=== PATIENT | female | born 1980 | race Two or more races ===

== ENCOUNTER 2018-04-10 22:59 | Inpatient (IN) | payer MEDICAID ==
[~2018-04-10] VITALS: Ht 167.6 cm; Wt 106.5 kg
[2018-04-11 00:10] LABS: Basophils # (auto) 0 uL; Basophils % (auto) 0.2 % (0.0-2.0); Eosinophils # (auto) 0.2 uL; Eosinophils % (auto) 1.3 % (0.0-7.0); Hematocrit 40.1 % (36.0-46.0); Hemoglobin 13.3 g/dL (12.2-16.2); Lymphocytes # (auto) 2.3 uL; Lymphocytes % (auto) 19.5 % (10.0-50.0); Mean Corpuscular Hemoglobin 28.8 pg (28.0-32.0); Mean Corpuscular Hgb Conc. 33.1 g/dL (32.0-36.0); Mean Corpuscular Volume 86.8 fL (80.0-100.0); Monocytes # (auto) 0.9 uL; Monocytes % (auto) 7.5 % (0.0-12.0); Neutrophils # (auto) 8.4 uL; Neutrophils % (auto) 71.5 % (37.0-80.0); Platelet Count (auto) 259 10^3/uL (140-450); Red Blood Cells 4.62 10^6/uL (4.0-5.20); Red Cell Distribution Width 14.5 % (11.8-14.3); White Blood Cell 11.8 10^3/uL (4.4-10.8)
[2018-04-11 00:17] LABS: Urine Amorphous Crystal FEW /hpf (None Seen); Urine Bacteria FEW /hpf (None Seen); Urine Blood 2+ /uL (Negative); Urine Specific Gravity 1.004 (1.001-1.035); Urine WBC 1 /hpf (0 - 5)
[2018-04-11 00:40] LABS: Albumin 3.5 g/dL (3.4-5.0); Calcium 8.1 mg/dL (8.5-10.1); Potassium 3.5 mmol/L (3.5-5.1)
[2018-04-11 00:42] LABS: BUN/Creatinine Ratio 7.9
[2018-04-11 00:43] LABS: Lactic Acid w/Reflex 2.3 mmol/L (0.4-2.0)
[2018-04-11 00:45] LABS: Bilirubin, Total 0.3 mg/dL (0.2-1.0); Total Protein 7.4 g/dL (6.4-8.2)
[2018-04-11] MEDS ORDERED: MORPHINE SULFATE 4 MG/ML SYR/VIAL IV ONE (01:00)
[2018-04-11] MEDS ORDERED: ONDANSETRON HCL 4 MG/2 ML VIAL IV ONE (01:00)
[2018-04-11] MEDS ORDERED: CLINDAMYCIN 900MG IV 50 ML IV ONE (02:00)
[2018-04-11] MEDS ORDERED: cefTRIAXone 1GM/50ML D5W 50 ML IV ONE (02:00)
[2018-04-11] MEDS: SODIUM CHLORIDE 0.9% 1,000 ML IV SCH ×2 (04:45→06:28)
[2018-04-11] MEDS ORDERED: HYDROcodone-ACET 5/325MG TAB PO PRN (04:45)
[2018-04-11] MEDS ORDERED: VANCOMYCIN PER PHARMACY 0 MG IV SCH (04:45)
[2018-04-11] MEDS ORDERED: TEMAZEPAM 15 MG CAP PO PRN (04:45)
[2018-04-11] MEDS ORDERED: ACETAMINOPHEN 325 MG TAB PO PRN (04:45)
[2018-04-11] MEDS ORDERED: VANCOMYCIN 1GM/250ML 250 ML IV ONE (05:30)
[2018-04-11] MEDS: MORPHINE SULFATE 4 MG/ML SYR/VIAL IV PRN ×3 (06:27→21:59)
[2018-04-11 06:39] VITALS: BP 131/80
[2018-04-11 09:13] VITALS: BP 123/71
[2018-04-11] MEDS: FAMOTIDINE 20 MG TAB PO SCH ×2 (11:40→21:59)
[2018-04-11] MEDS ORDERED: DEXTROSE (50%) 50ML SYRG IV PRN (14:30)
[2018-04-11 14:39] VITALS: BP 143/84
[2018-04-11] MEDS: VANCOMYCIN 1GM/250ML 250 ML IV SCH ×2 (15:47→23:30)
[2018-04-11] MEDS: ONDANSETRON HCL 4 MG/2 ML VIAL IV PRN ×2 (15:48→21:58)
[2018-04-11] MEDS: ACCU-CHEK COMFORT CURVE STRIP VI SCH ×2 (16:57→21:59)
[2018-04-11] MEDS: InsuLIN REG 1unit/0.01ml Soln (100units/ml) SC SCH ×2 (16:58→22:19)
[2018-04-11 17:18] VITALS: BP 125/78
[2018-04-11] MEDS: cefTRIAXone 1GM/50ML D5W 50 ML IV SCH (21:59)
[2018-04-11 22:00] VITALS: BP 131/78
[2018-04-12] VITALS (7 sets, daily range): BP systolic 107–140; BP diastolic 69–92
[2018-04-12 05:44] LABS: Basophils # (auto) 0 uL; Basophils % (auto) 0.3 % (0.0-2.0); Eosinophils # (auto) 0.2 uL; Eosinophils % (auto) 2.3 % (0.0-7.0); Hematocrit 38.2 % (36.0-46.0); Lymphocytes % (auto) 23.7 % (10.0-50.0); Mean Corpuscular Hemoglobin 29.6 pg (28.0-32.0); Mean Corpuscular Hgb Conc. 34.1 g/dL (32.0-36.0); Mean Corpuscular Volume 86.8 fL (80.0-100.0); Monocytes # (auto) 0.6 uL; Monocytes % (auto) 6.9 % (0.0-12.0); Neutrophils # (auto) 5.5 uL; Neutrophils % (auto) 66.8 % (37.0-80.0); Nucleated Red Blood Cells % 0.2 %; Platelet Count (auto) 238 10^3/uL (140-450); Red Cell Distribution Width 14.1 % (11.8-14.3); White Blood Cell 8.3 10^3/uL (4.4-10.8)
[2018-04-12 06:04] LABS: Potassium 3.6 mmol/L (3.5-5.1)
[2018-04-12 06:23] LABS: Albumin 2.9 g/dL (3.4-5.0); Bilirubin, Total 0.3 mg/dL (0.2-1.0); Magnesium 1.8 mg/dL (1.6-2.6); Total Protein 6.6 g/dL (6.4-8.2)
[2018-04-12] MEDS: VANCOMYCIN 1GM/250ML 250 ML IV SCH ×3 (06:35→20:39)
[2018-04-12] MEDS: ACCU-CHEK COMFORT CURVE STRIP VI SCH ×4 (06:35→22:49)
[2018-04-12] MEDS: SODIUM CHLORIDE 0.9% 1,000 ML IV SCH ×2 (07:25→12:48)
[2018-04-12] MEDS: InsuLIN REG 1unit/0.01ml Soln (100units/ml) SC SCH ×4 (08:00→22:48)
[2018-04-12] MEDS: ONDANSETRON HCL 4 MG/2 ML VIAL IV PRN ×2 (09:57→19:49)
[2018-04-12] MEDS: FAMOTIDINE 20 MG TAB PO SCH ×2 (09:57→22:48)
[2018-04-12] MEDS: MORPHINE SULFATE 4 MG/ML SYR/VIAL IV PRN ×2 (09:57→19:48)
[2018-04-12 12:25] LABS: Alcohol, Urine < 3.0 mg/dL (0-5); Amphetamine Screen, Urine POSITIVE (NEGATIVE); Barbiturate Scree,Urine NEGATIVE (NEGATIVE); Benzodiazephine Screen, Urine NEGATIVE (NEGATIVE); Cannabinoid Screen, Urine POSITIVE (NEGATIVE); Cocaine Screen, Urine NEGATIVE (NEGATIVE); Opiate Scree,Urine NEGATIVE (NEGATIVE); Phencyclidine Screen, Urine NEGATIVE (NEGATIVE)
[2018-04-12] MEDS ORDERED: MAGNESIUM SULFATE 1GM/100ML 100 ML IV ONE (12:30)
[2018-04-12] MEDS: metFORMIN HYDROCHLORIDE 500 MG TAB PO SCH (17:05)
[2018-04-12] MEDS: cefTRIAXone 1GM/50ML D5W 50 ML IV SCH (22:00)
[2018-04-12] MEDS: ATORVASTATIN 20 MG TAB PO SCH (22:48)
[2018-04-13] MEDS: VANCOMYCIN 1GM/250ML 250 ML IV SCH ×2 (02:49→10:55)
[2018-04-13] MEDS: MORPHINE SULFATE 4 MG/ML SYR/VIAL IV PRN ×3 (04:18→20:19)
[2018-04-13] MEDS: ONDANSETRON HCL 4 MG/2 ML VIAL IV PRN ×3 (04:18→20:18)
[2018-04-13 05:09] VITALS: BP 109/65
[2018-04-13] MEDS: ACCU-CHEK COMFORT CURVE STRIP VI SCH ×4 (06:32→22:12)
[2018-04-13] MEDS: metFORMIN HYDROCHLORIDE 500 MG TAB PO SCH ×2 (06:53→17:30)
[2018-04-13] MEDS: InsuLIN REG 1unit/0.01ml Soln (100units/ml) SC SCH ×4 (06:53→22:12)
[2018-04-13 07:30] LABS: Calcium 8.5 mg/dL (8.5-10.1); Potassium 3.6 mmol/L (3.5-5.1)
[2018-04-13 07:33] LABS: BUN/Creatinine Ratio 14.3
[2018-04-13 08:00] VITALS: BP 111/67
[2018-04-13 08:03] LABS: Basophils # (auto) 0 uL; Basophils % (auto) 0.2 % (0.0-2.0); Eosinophils # (auto) 0.2 uL; Eosinophils % (auto) 2.3 % (0.0-7.0); Hematocrit 40.3 % (36.0-46.0); Hemoglobin 13.7 g/dL (12.2-16.2); Lymphocytes # (auto) 2.3 uL; Lymphocytes % (auto) 27.5 % (10.0-50.0); Mean Corpuscular Hemoglobin 29.6 pg (28.0-32.0); Mean Corpuscular Hgb Conc. 33.9 g/dL (32.0-36.0); Mean Corpuscular Volume 87.4 fL (80.0-100.0); Monocytes # (auto) 0.5 uL; Monocytes % (auto) 6.2 % (0.0-12.0); Neutrophils # (auto) 5.4 uL; Neutrophils % (auto) 63.8 % (37.0-80.0); Nucleated Red Blood Cells % 0.2 %; Platelet Count (auto) 269 10^3/uL (140-450); Red Blood Cells 4.61 10^6/uL (4.0-5.20); White Blood Cell 8.4 10^3/uL (4.4-10.8)
[2018-04-13 09:12] VITALS: BP 111/67
[2018-04-13] MEDS: FAMOTIDINE 20 MG TAB PO SCH ×2 (09:40→22:12)
[2018-04-13] MEDS: SODIUM CHLORIDE 0.9% 1,000 ML IV SCH (10:55)
[2018-04-13 12:58] VITALS: BP 131/78
[2018-04-13] MEDS: CLINDAMYCIN 600MG IV 50 ML IV SCH ×2 (13:53→22:11)
[2018-04-13 16:50] VITALS: BP 118/76
[2018-04-13] MEDS ORDERED: VANCOMYCIN 1GM/250ML 250 ML IV SCH (17:00)
[2018-04-13 21:45] VITALS: BP 141/92
[2018-04-13] MEDS: cefTRIAXone 1GM/50ML D5W 50 ML IV SCH (22:00)
[2018-04-13] MEDS: ATORVASTATIN 20 MG TAB PO SCH (22:11)
[2018-04-14 05:12] VITALS: BP_SYST 119; BP_DIAS 82; BP_DIAS 85
[2018-04-14 05:30] LABS: Basophils # (auto) 0 uL; Basophils % (auto) 0.2 % (0.0-2.0); Eosinophils # (auto) 0.2 uL; Eosinophils % (auto) 2.8 % (0.0-7.0); Hematocrit 42.4 % (36.0-46.0); Hemoglobin 14.4 g/dL (12.2-16.2); Lymphocytes # (auto) 2.4 uL; Mean Corpuscular Hemoglobin 29.7 pg (28.0-32.0); Mean Corpuscular Hgb Conc. 34.1 g/dL (32.0-36.0); Mean Corpuscular Volume 87.3 fL (80.0-100.0); Monocytes # (auto) 0.6 uL; Monocytes % (auto) 6.6 % (0.0-12.0); Neutrophils # (auto) 5.5 uL; Neutrophils % (auto) 63.4 % (37.0-80.0); Nucleated Red Blood Cells % 0.5 %; Platelet Count (auto) 287 10^3/uL (140-450); Red Blood Cells 4.85 10^6/uL (4.0-5.20); Red Cell Distribution Width 14.1 % (11.8-14.3); White Blood Cell 8.7 10^3/uL (4.4-10.8)
[2018-04-14] MEDS: CLINDAMYCIN 600MG IV 50 ML IV SCH ×2 (05:42→14:03)
[2018-04-14] MEDS: ACCU-CHEK COMFORT CURVE STRIP VI SCH ×3 (05:43→17:28)
[2018-04-14 05:48] LABS: Calcium 8.9 mg/dL (8.5-10.1); Potassium 4.1 mmol/L (3.5-5.1)
[2018-04-14 05:50] LABS: BUN/Creatinine Ratio 13.7
[2018-04-14] MEDS: metFORMIN HYDROCHLORIDE 500 MG TAB PO SCH ×2 (06:20→17:28)
[2018-04-14] MEDS: InsuLIN REG 1unit/0.01ml Soln (100units/ml) SC SCH ×3 (06:21→17:00)
[2018-04-14 09:00] VITALS: BP 116/67
[2018-04-14] MEDS: FAMOTIDINE 20 MG TAB PO SCH (09:57)
[2018-04-14] MEDS: ONDANSETRON HCL 4 MG/2 ML VIAL IV PRN (09:58)
[2018-04-14] MEDS: MORPHINE SULFATE 4 MG/ML SYR/VIAL IV PRN (09:58)
[2018-04-14 12:37] VITALS: BP 127/74
[2018-04-14] MEDS ORDERED: CLIN1CAP4 PO (15:16)
[2018-04-14] MEDS ORDERED: SACC250C PO (15:16)
[2018-04-14] MEDS ORDERED: METF-372 PO (15:16)
[2018-04-14] MEDS ORDERED: LEVO500T21 PO (15:16)
[2018-04-14 17:00] VITALS: BP 113/71
== END 2018-04-14 19:22 | disposition home or self-care (01) | DRG 720 ==
LOC: ER 22:59 → OVERFLOW 23:00 → WEST WING 04-11 05:40
PROVIDERS: ADMIT Nurse Practitioner; ATTEND Internal Medicine
DX: A41.9 Sepsis, unspecified organism (principal); E11.65 Type 2 diabetes mellitus with hyperglycemia; L03.211 Cellulitis of face; E66.01 Morbid (severe) obesity due to excess calories; I10 Essential (primary) hypertension; E78.5 Hyperlipidemia, unspecified; K02.9 Dental caries, unspecified; F12.10 Cannabis abuse, uncomplicated; Z91.19 Patient's noncompliance with other medical treatment and regimen; Z68.37 Body mass index [BMI] 37.0-37.9, adult; Z71.51 Drug abuse counseling and surveillance of drug abuser
CPT/HCPCS: 36415; 70486; 80048; 80053; 80061; 80202; 80307; 81001; 82962; 83036; 83605; 83735; 85025; 87040; 87086; 96365; 96366; 96368; 96375; G0378; J0696; J1815; J2405; J3490

== ENCOUNTER 2021-06-18 23:53 | Inpatient (IN) | payer MEDICAID ==
[~2021-06-18] VITALS: Ht 167.6 cm; Wt 98.0 kg
[~2021-06-18 23:53] MED LIST: CLIN300C8 PO; GLIP10TA9 PO; LEVO500T31 PO; METF-372 PO; SIMV10TA84 PO
[2021-06-19 02:22] LABS: Basophils # (auto) 0.2 10 ^3/uL (0-0.2); Basophils % (auto) 1.6 % (0.0-2.0); Eosinophils # (auto) 0.3 10 ^3/uL (0-0.8); Eosinophils % (auto) 3.1 % (0.0-7.0); Hemoglobin 12.5 g/dL (12.2-16.2); Lymphocytes # (auto) 1.9 10 ^3/uL (0.4-5.4); Lymphocytes % (auto) 19.6 % (10.0-50.0); Mean Corpuscular Hemoglobin 27.6 pg (28.0-32.0); Mean Corpuscular Volume 83.8 fL (80.0-100.0); Monocytes # (auto) 0.5 10 ^3/uL (0-1.3); Monocytes % (auto) 5.2 % (0.0-12.0); Neutrophils # (auto) 6.8 10 ^3/uL (1.6-8.6); Neutrophils % (auto) 70.5 % (37.0-80.0); Nucleated Red Blood Cells % 0.2 %; Red Blood Cells 4.54 10^6/uL (4.0-5.20); Red Cell Distribution Width 14.4 % (11.8-14.3); White Blood Cell 9.7 10^3/uL (4.4-10.8)
[2021-06-19 02:37] LABS: BUN/Creatinine Ratio 24.4; Calcium 9.2 mg/dL (8.5-10.1); Potassium 4.3 mmol/L (3.5-5.1)
[2021-06-19] MEDS ORDERED: VANCOMYCIN 1GM/250ML 250 ML IV ONE (03:00)
[2021-06-19] MEDS ORDERED: PIPERACILLIN-TAZOB 3.375GM 100 ML IV ONE (03:00)
[2021-06-19] MEDS ORDERED: ONDANSETRON HCL 4 MG/2 ML VIAL IV PRN (03:15)
[2021-06-19] MEDS ORDERED: DEXTROSE (50%) 50ML SYRG IV PRN (03:15)
[2021-06-19] MEDS ORDERED: NITROGLYCERIN 0.4 MG SL TAB SL PRN (03:15)
[2021-06-19] MEDS ORDERED: CLINDAMYCIN 900MG IV 50 ML IV SCH (06:00)
[2021-06-19] MEDS: ACCU-CHEK COMFORT CURVE STRIP VI SCH ×4 (06:34→22:00)
[2021-06-19] MEDS: InsuLIN REG 1unit/0.01ml Soln (100units/ml) SC SCH ×4 (06:42→22:00)
[2021-06-19] MEDS: SODIUM CHLORIDE 0.9% 1,000 ML IV SCH ×3 (07:45→19:55)
[2021-06-19 09:16] VITALS: BP 99/60
[2021-06-19] MEDS ORDERED: levoFLOXacin 500MG 100 ML IV SCH (10:00)
[2021-06-19] MEDS: ENOXAPARIN SOD 40 MG/0.4 ML SYRINGE SC SCH (10:11)
[2021-06-19] MEDS: MORPHINE SULFATE 4 MG/ML SYR/VIAL IV PRN ×2 (11:13→15:25)
[2021-06-19] MEDS ORDERED: CEFTRIAXONE SODIUM 2 GM in D5W 5% 50 ML IV ONE (11:45)
[2021-06-19] MEDS ORDERED: VANCOMYCIN PER PHARMACY 0 MG IV SCH (11:45)
[2021-06-19 13:00] VITALS: BP 114/69
[2021-06-19] MEDS: VANCOMYCIN 1GM/250ML 250 ML IV SCH (15:25)
[2021-06-19 16:38] LABS: INR 0.98 (0.9-1.15); Partial Thromboplastin Time 30.8 sec (23.6-33.0)
[2021-06-19 16:39] VITALS: BP 109/66
[2021-06-19] MEDS ORDERED: LIDOCAINE 1% (LOCAL ANESTH.) PF 5ml SDV ID ONE (18:00)
[2021-06-19 21:38] VITALS: BP 144/82
[2021-06-20] MEDS: VANCOMYCIN 1GM/250ML 250 ML IV SCH ×4 (00:22→21:33)
[2021-06-20] MEDS: SODIUM CHLOR 0.9% PF (SALINE LOCK) 10ML VIAL/SYR IV SCH ×3 (00:27→21:40)
[2021-06-20 05:00] VITALS: BP 132/70
[2021-06-20 05:38] LABS: Basophils # (auto) 0 10 ^3/uL (0-0.2); Basophils % (auto) 0.6 % (0.0-2.0); Eosinophils # (auto) 0.3 10 ^3/uL (0-0.8); Eosinophils % (auto) 3.4 % (0.0-7.0); Hematocrit 36.5 % (36.0-46.0); Hemoglobin 12.4 g/dL (12.2-16.2); Lymphocytes # (auto) 2.5 10 ^3/uL (0.4-5.4); Lymphocytes % (auto) 34.2 % (10.0-50.0); Mean Corpuscular Hemoglobin 28.2 pg (28.0-32.0); Mean Corpuscular Hgb Conc. 33.9 g/dL (32.0-36.0); Mean Corpuscular Volume 83.1 fL (80.0-100.0); Monocytes # (auto) 0.4 10 ^3/uL (0-1.3); Monocytes % (auto) 5.7 % (0.0-12.0); Neutrophils # (auto) 4.1 10 ^3/uL (1.6-8.6); Neutrophils % (auto) 56.1 % (37.0-80.0); Nucleated Red Blood Cells % 0.1 %; Red Blood Cells 4.39 10^6/uL (4.0-5.20); Red Cell Distribution Width 14.8 % (11.8-14.3); White Blood Cell 7.3 10^3/uL (4.4-10.8)
[2021-06-20 05:59] LABS: BUN/Creatinine Ratio 16.7; Calcium 8.5 mg/dL (8.5-10.1); Potassium 4.4 mmol/L (3.5-5.1)
[2021-06-20] MEDS: SODIUM CHLORIDE 0.9% 1,000 ML IV SCH ×3 (06:47→21:39)
[2021-06-20] MEDS: InsuLIN REG 1unit/0.01ml Soln (100units/ml) SC SCH ×4 (06:52→21:40)
[2021-06-20] MEDS: ACCU-CHEK COMFORT CURVE STRIP VI SCH ×4 (06:52→21:40)
[2021-06-20 09:00] VITALS: BP 123/78
[2021-06-20] MEDS: ENOXAPARIN SOD 40 MG/0.4 ML SYRINGE SC SCH (09:33)
[2021-06-20] MEDS ORDERED: CEFTRIAXONE SODIUM 2 GM in D5W 5% 50 ML IV SCH (10:00)
[2021-06-20] MEDS: MORPHINE SULFATE 4 MG/ML SYR/VIAL IV PRN ×3 (10:04→20:32)
[2021-06-20 12:56] VITALS: BP 105/61
[2021-06-20] MEDS ORDERED: IODIXANOL 320MG/ML 100ML BTL IV ONE (13:30)
[2021-06-20] MEDS ORDERED: LIDOCAINE 2%HCL (LOCAL ANESTH.) INJ 20ML MDV ONE (13:30)
[2021-06-20] MEDS ORDERED: ANGIOMAX 250 MG VIAL IV ONE (13:34)
[2021-06-20] MEDS ORDERED: fentaNYL CITRATE 100 MCG/2 ML VL ONE (13:34)
[2021-06-20] MEDS ORDERED: SODIUM CHL 0.9% 0 ML ONE (13:35)
[2021-06-20] MEDS ORDERED: MIDAZOLAM HCL 2MG/2ML 2ml VIAL (1mg/ml) ONE (13:35)
[2021-06-20 17:00] VITALS: BP 110/65
[2021-06-20 22:00] VITALS: BP 111/62
[2021-06-21] MEDS: MORPHINE SULFATE 4 MG/ML SYR/VIAL IV PRN ×4 (00:20→22:30)
[2021-06-21] MEDS: VANCOMYCIN 1GM/250ML 250 ML IV SCH ×4 (04:28→22:21)
[2021-06-21 05:00] VITALS: BP 108/65
[2021-06-21] MEDS: SODIUM CHLORIDE 0.9% 1,000 ML IV SCH ×3 (05:15→22:20)
[2021-06-21] MEDS: InsuLIN REG 1unit/0.01ml Soln (100units/ml) SC SCH ×4 (05:45→22:48)
[2021-06-21] MEDS: ACCU-CHEK COMFORT CURVE STRIP VI SCH ×4 (05:46→22:20)
[2021-06-21 08:00] VITALS: BP 109/65
[2021-06-21] MEDS: CEFTRIAXONE SODIUM 2 GM in D5W 5% 50 ML IV SCH (08:16)
[2021-06-21] MEDS: SODIUM CHLOR 0.9% PF (SALINE LOCK) 10ML VIAL/SYR IV SCH ×2 (09:18→22:20)
[2021-06-21] MEDS: ENOXAPARIN SOD 40 MG/0.4 ML SYRINGE SC SCH (09:18)
[2021-06-21] MEDS ORDERED: ceFAZolin 1GM VL ONE (09:24)
[2021-06-21] MEDS ORDERED: ROPIVACAINE 0.5% (5MG/ML) 20ML AMPULE IJ ONE (09:25)
[2021-06-21 16:00] VITALS: BP 120/73
[2021-06-21] MEDS ORDERED: VANC1000 IV (18:28)
[2021-06-21] MEDS ORDERED: HYDR-4902 PO (18:28)
[2021-06-21] MEDS ORDERED: CEFT1INJ6 IV (18:28)
[2021-06-21 20:00] VITALS: BP 123/70
[2021-06-21 22:00] VITALS: BP 123/70
[2021-06-22] MEDS: VANCOMYCIN 1GM/250ML 250 ML IV SCH ×3 (03:41→16:17)
[2021-06-22 05:00] VITALS: BP 119/72
[2021-06-22] MEDS: MORPHINE SULFATE 4 MG/ML SYR/VIAL IV PRN ×2 (05:17→16:31)
[2021-06-22] MEDS: ACCU-CHEK COMFORT CURVE STRIP VI SCH ×3 (06:27→17:36)
[2021-06-22] MEDS: SODIUM CHLORIDE 0.9% 1,000 ML IV SCH ×2 (06:27→14:11)
[2021-06-22] MEDS: InsuLIN REG 1unit/0.01ml Soln (100units/ml) SC SCH ×3 (06:31→17:37)
[2021-06-22 09:00] VITALS: BP 118/68
[2021-06-22] MEDS: SODIUM CHLOR 0.9% PF (SALINE LOCK) 10ML VIAL/SYR IV SCH (09:12)
[2021-06-22] MEDS: CEFTRIAXONE SODIUM 2 GM in D5W 5% 50 ML IV SCH (09:12)
[2021-06-22] MEDS: ENOXAPARIN SOD 40 MG/0.4 ML SYRINGE SC SCH (09:13)
[2021-06-22 13:00] VITALS: BP 109/67
[2021-06-22] MEDS ORDERED: methylPREDNISolone SOD SUCC 40 MG/ML VL IV ONE (15:00)
[2021-06-22 17:19] VITALS: BP 110/72
== END 2021-06-22 18:18 | disposition home health service (06) | DRG 314 ==
LOC: ER 23:53 → TELE 06-19 03:15 → TELE-WESTW 06-19 08:55
PROVIDERS: ADMIT Hospitalist; ATTEND Hospitalist
PROC: B41F1ZZ Fluoroscopy of Right Lower Extremity Arteries using Low Osmolar Contrast (ICD-10-PCS; principal; 2021-06-20)
PROC: B41G1ZZ Fluoroscopy of Left Lower Extremity Arteries using Low Osmolar Contrast (ICD-10-PCS; 2021-06-20)
PROC: 0Y6T0Z0 Detachment at Right 3rd Toe, Complete, Open Approach (ICD-10-PCS; 2021-06-21)
DX: E11.69 Type 2 diabetes mellitus with other specified complication (principal); E11.51 Type 2 diabetes mellitus with diabetic peripheral angiopathy without gangrene; M86.8X7 Other osteomyelitis, ankle and foot; L97.519 Non-pressure chronic ulcer of other part of right foot with unspecified severity; L03.031 Cellulitis of right toe; E66.9 Obesity, unspecified; E11.621 Type 2 diabetes mellitus with foot ulcer; E78.5 Hyperlipidemia, unspecified; I10 Essential (primary) hypertension; Z20.822 Contact with and (suspected) exposure to COVID-19; F17.210 Nicotine dependence, cigarettes, uncomplicated; Z91.14 Patient's other noncompliance with medication regimen; Z68.34 Body mass index [BMI] 34.0-34.9, adult; Z83.3 Family history of diabetes mellitus; Z90.710 Acquired absence of both cervix and uterus; Z98.51 Tubal ligation status; Z90.49 Acquired absence of other specified parts of digestive tract
CPT/HCPCS: 36415; 36569; 71045; 73630; 73700; 73718; 80048; 80202; 81025; 82565; 82962; 84702; 85025; 85610; 85730; 86141; 87070; 87075; 87081; 87205; 87426; 93926; 96365; 96367; 99152; G0378; J0690; J0696; J1815; J1956; J2250; J2405; J3490; J7060; Q9967

== ENCOUNTER 2021-06-30 09:51 | Emergency (ER) | payer MEDICAID ==
[~2021-06-30] VITALS: Ht 167.6 cm; Wt 97.5 kg
[~2021-06-30 09:51] MED LIST changes: +CEFT1INJ6 IV; -CLIN300C8 PO; +HYDR-4902 PO; -LEVO500T31 PO; +VANC1000 IV
[2021-06-30 10:22] VITALS: BP 120/80
== END 2021-06-30 10:55 | disposition home or self-care (01) ==
LOC: ER 09:51
DX: Z45.2 Encounter for adjustment and management of vascular access device (principal); E11.9 Type 2 diabetes mellitus without complications; F17.210 Nicotine dependence, cigarettes, uncomplicated; Z89.421 Acquired absence of other right toe(s); Z90.49 Acquired absence of other specified parts of digestive tract; Z79.2 Long term (current) use of antibiotics; Z79.899 Other long term (current) drug therapy

== ENCOUNTER 2021-07-17 19:29 | Emergency (ER) | payer MEDICAID ==
[~2021-07-17] VITALS: Ht 167.6 cm; Wt 94.8 kg
[2021-07-17] MEDS ORDERED: MORPHINE SULFATE 4 MG/ML SYR/VIAL IV ONE (20:45)
[2021-07-17] MEDS ORDERED: ONDANSETRON HCL 4 MG/2 ML VIAL IV ONE (20:45)
[2021-07-17] MEDS ORDERED: cefTRIAXone 1GM/50ML D5W 50 ML IV ONE (21:30)
[2021-07-17 22:15] LABS: Basophils # (auto) 0 10 ^3/uL (0-0.2); Basophils % (auto) 0.2 % (0.0-2.0); Eosinophils # (auto) 0.3 10 ^3/uL (0-0.8); Eosinophils % (auto) 2.7 % (0.0-7.0); Hematocrit 36.1 % (36.0-46.0); Hemoglobin 12.3 g/dL (12.2-16.2); Lymphocytes # (auto) 2.8 10 ^3/uL (0.4-5.4); Lymphocytes % (auto) 28.1 % (10.0-50.0); Mean Corpuscular Hemoglobin 28.1 pg (28.0-32.0); Mean Corpuscular Volume 82.7 fL (80.0-100.0); Monocytes # (auto) 0.6 10 ^3/uL (0-1.3); Monocytes % (auto) 5.9 % (0.0-12.0); Neutrophils # (auto) 6.3 10 ^3/uL (1.6-8.6); Neutrophils % (auto) 63.1 % (37.0-80.0); Red Blood Cells 4.37 10^6/uL (4.0-5.20); Red Cell Distribution Width 15.4 % (11.8-14.3)
[2021-07-17 22:34] LABS: Albumin 3.6 g/dL (3.4-5.0); BUN/Creatinine Ratio 26.2; Calcium 9.1 mg/dL (8.5-10.1); Potassium 4.1 mmol/L (3.5-5.1)
[2021-07-17 22:37] LABS: Bilirubin, Total 0.2 mg/dL (0.2-1.0); Total Protein 7.1 g/dL (6.4-8.2)
[2021-07-18 12:00] VITALS: BP 118/76
[2021-07-18] MEDS ORDERED: HYDROcodone-ACET 10/325MG TAB PO ONE (12:00)
== END 2021-07-18 12:52 | disposition home or self-care (01) ==
LOC: ER 19:32
DX: M86.9 Osteomyelitis, unspecified (principal); I10 Essential (primary) hypertension; E11.9 Type 2 diabetes mellitus without complications; E78.5 Hyperlipidemia, unspecified; F17.210 Nicotine dependence, cigarettes, uncomplicated; Z90.49 Acquired absence of other specified parts of digestive tract; Z79.2 Long term (current) use of antibiotics; Z79.899 Other long term (current) drug therapy; Z20.822 Contact with and (suspected) exposure to COVID-19
CPT/HCPCS: 36415; 73700; 80053; 85025; 85652; 87426; 96365; 96375; 99284; J0696; J2270; J2405

== ENCOUNTER 2021-07-20 21:42 | Emergency (ER) | payer MEDICAID ==
[~2021-07-20] VITALS: Ht 167.6 cm; Wt 90.7 kg
[2021-07-21] MEDS ORDERED: VANCOMYCIN 1GM/250ML 250 ML IV ONE
[2021-07-21] MEDS ORDERED: cefTRIAXone 1GM/50ML D5W 50 ML IV ONE (00:15)
[2021-07-21 01:37] VITALS: BP 151/74
== END 2021-07-21 02:42 | disposition home or self-care (01) ==
LOC: ER 21:46
DX: M86.8X7 Other osteomyelitis, ankle and foot (principal); I10 Essential (primary) hypertension; E11.9 Type 2 diabetes mellitus without complications; E78.5 Hyperlipidemia, unspecified; F17.210 Nicotine dependence, cigarettes, uncomplicated; Z90.49 Acquired absence of other specified parts of digestive tract; Z79.2 Long term (current) use of antibiotics; Z79.899 Other long term (current) drug therapy
CPT/HCPCS: 36415; 80202; 96365; 96375; 99284; J0696; J3370

== ENCOUNTER 2021-07-25 10:57 | Emergency (ER) | payer MEDICAID ==
[~2021-07-25] VITALS: Ht 167.6 cm; Wt 97.5 kg
[2021-07-25 11:02] VITALS: BP 120/87
== END 2021-07-25 15:39 | disposition left against medical advice (07) ==
LOC: ER 10:57
DX: Z45.2 Encounter for adjustment and management of vascular access device (principal); I10 Essential (primary) hypertension; E11.9 Type 2 diabetes mellitus without complications; E78.5 Hyperlipidemia, unspecified; F17.210 Nicotine dependence, cigarettes, uncomplicated; Z90.49 Acquired absence of other specified parts of digestive tract; Z79.2 Long term (current) use of antibiotics; Z79.899 Other long term (current) drug therapy

== ENCOUNTER 2021-07-27 12:36 | Emergency (ER) | payer MEDICAID ==
[~2021-07-27] VITALS: Ht 167.6 cm; Wt 97.5 kg
[2021-07-27 12:46] VITALS: BP 116/76
== END 2021-07-27 13:05 | disposition home or self-care (01) ==
LOC: ER 12:36
DX: E11.9 Type 2 diabetes mellitus without complications (principal); E78.5 Hyperlipidemia, unspecified; I10 Essential (primary) hypertension; F17.210 Nicotine dependence, cigarettes, uncomplicated; Z90.49 Acquired absence of other specified parts of digestive tract; Z98.51 Tubal ligation status; Z45.2 Encounter for adjustment and management of vascular access device

== ENCOUNTER 2021-08-05 20:40 | Emergency (ER) | payer MEDICAID ==
[~2021-08-05] VITALS: Ht 167.6 cm; Wt 97.5 kg
[2021-08-05] MEDS ORDERED: SULFAMETHOX W/TRIMETH(800/160MG) DS TAB PO ONE (22:00)
[2021-08-05] MEDS ORDERED: CEPHALEXIN 250 MG CAP PO ONE (22:00)
[2021-08-05] MEDS ORDERED: HYDROcodone-ACET 10/325MG TAB PO ONE (22:15)
[2021-08-05 22:54] VITALS: BP 121/62
[2021-08-05] MEDS ORDERED: CEPH-509 PO (22:55)
[2021-08-05] MEDS ORDERED: SULF800T7 PO (22:55)
== END 2021-08-05 23:38 | disposition home or self-care (01) ==
LOC: ER 20:49
DX: L08.9 Local infection of the skin and subcutaneous tissue, unspecified (principal); R22.41 Localized swelling, mass and lump, right lower limb; I10 Essential (primary) hypertension; E11.9 Type 2 diabetes mellitus without complications; E78.5 Hyperlipidemia, unspecified; F17.210 Nicotine dependence, cigarettes, uncomplicated; Z90.49 Acquired absence of other specified parts of digestive tract; Z79.2 Long term (current) use of antibiotics; Z79.899 Other long term (current) drug therapy
CPT/HCPCS: 73630

== ENCOUNTER 2021-08-13 19:40 | Emergency (ER) | payer MEDICAID ==
[~2021-08-13] VITALS: Ht 167.6 cm; Wt 99.8 kg
[~2021-08-13 19:40] MED LIST changes: +CEPH-509 PO; +SULF800T7 PO
[2021-08-13] MEDS ORDERED: PIPERACILLIN-TAZOB 3.375GM 100 ML IV ONE (21:00)
[2021-08-13] MEDS ORDERED: VANCOMYCIN PER PHARMACY 0 MG IV SCH (21:00)
[2021-08-13] MEDS ORDERED: VANCOMYCIN 1GM/250ML 250 ML IV SCH (21:15)
[2021-08-13 21:24] LABS: Basophils # (auto) 0.1 10 ^3/uL (0-0.2); Basophils % (auto) 0.8 % (0.0-2.0); Eosinophils # (auto) 0.2 10 ^3/uL (0-0.8); Eosinophils % (auto) 2.6 % (0.0-7.0); Hematocrit 34.3 % (36.0-46.0); Hemoglobin 11.8 g/dL (12.2-16.2); Lymphocytes # (auto) 2.2 10 ^3/uL (0.4-5.4); Lymphocytes % (auto) 25.4 % (10.0-50.0); Mean Corpuscular Hemoglobin 28.4 pg (28.0-32.0); Mean Corpuscular Hgb Conc. 34.3 g/dL (32.0-36.0); Mean Corpuscular Volume 82.8 fL (80.0-100.0); Monocytes # (auto) 0.8 10 ^3/uL (0-1.3); Monocytes % (auto) 9.5 % (0.0-12.0); Neutrophils # (auto) 5.4 10 ^3/uL (1.6-8.6); Neutrophils % (auto) 61.7 % (37.0-80.0); Nucleated Red Blood Cells % 0.1 %; Red Blood Cells 4.14 10^6/uL (4.0-5.20); Red Cell Distribution Width 15.2 % (11.8-14.3); White Blood Cell 8.8 10^3/uL (4.4-10.8)
[2021-08-13 21:40] LABS: Albumin 3.7 g/dL (3.4-5.0); Calcium 8.9 mg/dL (8.5-10.1); Potassium 3.6 mmol/L (3.5-5.1)
[2021-08-13 21:42] LABS: BUN/Creatinine Ratio 22.5
[2021-08-13 21:45] LABS: Bilirubin, Total 0.6 mg/dL (0.2-1.0); Total Protein 7.6 g/dL (6.4-8.2)
[2021-08-13] MEDS ORDERED: MORPHINE SULFATE 4 MG/ML SYR/VIAL IV ONE (22:15)
[2021-08-14 01:23] VITALS: BP 111/66
== END 2021-08-14 01:37 | disposition home or self-care (01) ==
LOC: ER 19:47
DX: L08.9 Local infection of the skin and subcutaneous tissue, unspecified (principal); E11.9 Type 2 diabetes mellitus without complications; I10 Essential (primary) hypertension; E78.5 Hyperlipidemia, unspecified; F17.210 Nicotine dependence, cigarettes, uncomplicated; Z90.49 Acquired absence of other specified parts of digestive tract; Z79.899 Other long term (current) drug therapy
CPT/HCPCS: 36415; 73630; 80053; 85025; 87040; 96365; 96366; 96368; 96375; 99285; J2270; J2543; J3370

== ENCOUNTER 2022-03-11 21:31 | Emergency (ER) | payer MEDICAID ==
[~2022-03-11] VITALS: Ht 167.6 cm; Wt 100.0 kg
[2022-03-12] MEDS ORDERED: CEPH-510 PO (03:21)
[2022-03-12] MEDS ORDERED: TETANUS-DIPTH-ACEL PERTUSSIS 0.5ML SYR Tdap IM ONE (03:30)
[2022-03-12] MEDS ORDERED: KETOROLAC TROMETH 60MG/2ML VIAL IM ONE (03:30)
[2022-03-12 04:15] VITALS: BP 122/70
== END 2022-03-12 04:18 | disposition home or self-care (01) ==
LOC: ER 21:33
DX: S91.302A Unspecified open wound, left foot, initial encounter (principal); L03.116 Cellulitis of left lower limb; E11.9 Type 2 diabetes mellitus without complications; I10 Essential (primary) hypertension; E78.5 Hyperlipidemia, unspecified; F17.210 Nicotine dependence, cigarettes, uncomplicated; Z90.49 Acquired absence of other specified parts of digestive tract; Z98.51 Tubal ligation status; Z79.899 Other long term (current) drug therapy; X58.XXXA Exposure to other specified factors, initial encounter; Y93.89 Activity, other specified; Y92.89 Other specified places as the place of occurrence of the external cause; Y99.8 Other external cause status
CPT/HCPCS: 90471; 90715; 96372; 99284; J1885

== ENCOUNTER 2022-08-19 13:29 | Inpatient (IN) | payer MEDICAID ==
[~2022-08-19] VITALS: Ht 167.6 cm; Wt 89.0 kg
[~2022-08-19 13:29] MED LIST changes: +CEPH-510 PO
[2022-08-19] MEDS ORDERED: CEPH-510 PO (14:43)
[2022-08-19] MEDS ORDERED: CLIN300C8 PO (14:43)
[2022-08-19] MEDS ORDERED: cefTRIAXone SOD 1,000 MG VL IM ONE (14:45)
[2022-08-19] MEDS ORDERED: CLINDAMYCIN HCL 150 MG CAP PO ONE (14:45)
[2022-08-19] MEDS ORDERED: SODIUM CHLORIDE 0.9% 1,000 ML IV ONE ×2 (15:30)
[2022-08-19 16:05] LABS: Basophils # (auto) 0 10 ^3/uL (0-0.2); Basophils % (auto) 0.3 % (0.0-2.0); Eosinophils # (auto) 0.2 10 ^3/uL (0-0.8); Eosinophils % (auto) 1.6 % (0.0-7.0); Hematocrit 43.5 % (36.0-46.0); Hemoglobin 14.6 g/dL (12.2-16.2); Lymphocytes # (auto) 2.3 10 ^3/uL (0.4-5.4); Lymphocytes % (auto) 22.5 % (10.0-50.0); Mean Corpuscular Hemoglobin 27.1 pg (28.0-32.0); Mean Corpuscular Hgb Conc. 33.6 g/dL (32.0-36.0); Mean Corpuscular Volume 80.5 fL (80.0-100.0); Monocytes # (auto) 0.6 10 ^3/uL (0-1.3); Monocytes % (auto) 6.1 % (0.0-12.0); Neutrophils # (auto) 7.1 10 ^3/uL (1.6-8.6); Neutrophils % (auto) 69.5 % (37.0-80.0); Nucleated Red Blood Cells % 0.8 %; Red Blood Cells 5.41 10^6/uL (4.0-5.20); Red Cell Distribution Width 13.9 % (11.8-14.3); White Blood Cell 10.2 10^3/uL (4.4-10.8)
[2022-08-19 16:23] LABS: Albumin 3.6 g/dL (3.4-5.0); BUN/Creatinine Ratio 22.4; Calcium 9.7 mg/dL (8.5-10.1); Potassium 4.5 mmol/L (3.5-5.1)
[2022-08-19 16:25] LABS: Lactic Acid w/Reflex 2.7 mmol/L (0.4-2.0)
[2022-08-19 16:26] LABS: Bilirubin, Total 0.2 mg/dL (0.2-1.0); Total Protein 8.2 g/dL (6.4-8.2)
[2022-08-19] MEDS ORDERED: ONDANSETRON HCL 4 MG/2 ML VIAL IV PRN (16:45)
[2022-08-19] MEDS ORDERED: ACETAMINOPHEN 325 MG TAB PO PRN (16:45)
[2022-08-19] MEDS ORDERED: DEXTROSE (50%) 50ML SYRG IV PRN (16:45)
[2022-08-19] MEDS ORDERED: NITROGLYCERIN 0.4 MG SL TAB SL PRN (16:45)
[2022-08-19] MEDS ORDERED: hydrALAZINE HCL 20 MG/ML VL IV PRN (16:45)
[2022-08-19] MEDS ORDERED: MORPHINE SULFATE INJ 2 MG/ml SYRG IV PRN (16:45)
[2022-08-19] MEDS ORDERED: VANCOMYCIN PER PHARMACY 0 MG IV SCH (16:45)
[2022-08-19] MEDS: SODIUM CHLORIDE 0.9% 1,000 ML IV SCH (16:57)
[2022-08-19 17:09] LABS: Urine Bacteria FEW /hpf (None Seen); Urine Blood Negative /uL (Negative); Urine Specific Gravity 1.014 (1.001-1.035); Urine WBC 11 /hpf (0 - 5)
[2022-08-19] MEDS: InsuLIN REG 1unit/0.01ml Soln (100units/ml) SC SCH ×2 (17:40→22:30)
[2022-08-19] MEDS: ACCU-CHEK COMFORT CURVE STRIP VI SCH ×2 (17:40→22:27)
[2022-08-19] MEDS: VANCOMYCIN 1GM/250ML 250 ML IV SCH (17:56)
[2022-08-19 18:47] LABS: Cholesterol 154 mg/dL (< 200); HDL Cholesterol 47 mg/dL (40-59); LDL Cholesterol 95 mg/dL (< 100); Triglycerides 125 mg/dL (< 150)
[2022-08-19] MEDS: HYDROcodone-ACET 5/325MG TAB PO PRN (21:00)
[2022-08-19] MEDS: ATORVASTATIN 20 MG TAB PO SCH (22:30)
[2022-08-19] MEDS: PIPERACILLIN-TAZOB 3.375GM 100 ML IV SCH (23:44)
[2022-08-20] MEDS: SODIUM CHLORIDE 0.9% 1,000 ML IV SCH ×4 (00:15→22:37)
[2022-08-20] MEDS: VANCOMYCIN 1GM/250ML 250 ML IV SCH ×3 (02:47→18:18)
[2022-08-20 06:15] LABS: BUN/Creatinine Ratio 29.4; Bilirubin, Total 0.5 mg/dL (0.2-1.0); Calcium 9.1 mg/dL (8.5-10.1); Potassium 4.2 mmol/L (3.5-5.1)
[2022-08-20] MEDS: PIPERACILLIN-TAZOB 3.375GM 100 ML IV SCH ×2 (06:24→14:34)
[2022-08-20] MEDS: ACCU-CHEK COMFORT CURVE STRIP VI SCH ×4 (06:35→22:25)
[2022-08-20] MEDS: InsuLIN REG 1unit/0.01ml Soln (100units/ml) SC SCH ×4 (06:38→22:28)
[2022-08-20 07:05] LABS: Basophils # (auto) 0 10 ^3/uL (0-0.2); Basophils % (auto) 0.3 % (0.0-2.0); Eosinophils # (auto) 0.3 10 ^3/uL (0-0.8); Eosinophils % (auto) 3.6 % (0.0-7.0); Hematocrit 36.4 % (36.0-46.0); Hemoglobin 12.7 g/dL (12.2-16.2); Lymphocytes # (auto) 2.7 10 ^3/uL (0.4-5.4); Lymphocytes % (auto) 30.6 % (10.0-50.0); Mean Corpuscular Hemoglobin 27.6 pg (28.0-32.0); Mean Corpuscular Hgb Conc. 34.8 g/dL (32.0-36.0); Mean Corpuscular Volume 79.4 fL (80.0-100.0); Monocytes # (auto) 0.6 10 ^3/uL (0-1.3); Monocytes % (auto) 7.1 % (0.0-12.0); Neutrophils # (auto) 5.2 10 ^3/uL (1.6-8.6); Neutrophils % (auto) 58.4 % (37.0-80.0); Nucleated Red Blood Cells % 0.3 %; Red Blood Cells 4.59 10^6/uL (4.0-5.20); Red Cell Distribution Width 13.8 % (11.8-14.3); White Blood Cell 8.9 10^3/uL (4.4-10.8)
[2022-08-20] MEDS: PANTOPRAZOLE 40 MG/10 ML VIAL INJ IV SCH (10:59)
[2022-08-20] MEDS: ENOXAPARIN SOD 40 MG/0.4 ML SYRINGE SC SCH (10:59)
[2022-08-20 22:00] VITALS: BP 124/78
[2022-08-20] MEDS: DAKINS QUARTER STR 0.125% (NaHypochlorite) 473 ML TOPICAL SOL TOP SCH (22:00)
[2022-08-20] MEDS: ATORVASTATIN 20 MG TAB PO SCH (22:35)
[2022-08-21] MEDS: VANCOMYCIN 1GM/250ML 250 ML IV SCH ×3 (01:16→17:28)
[2022-08-21 05:00] VITALS: BP 126/70
[2022-08-21 06:23] LABS: Basophils # (auto) 0 10 ^3/uL (0-0.2); Eosinophils # (auto) 0.3 10 ^3/uL (0-0.8); Hemoglobin 12.8 g/dL (12.2-16.2); Lymphocytes # (auto) 2.3 10 ^3/uL (0.4-5.4); Mean Corpuscular Volume 77.9 fL (80.0-100.0); White Blood Cell 7.6 10^3/uL (4.4-10.8)
[2022-08-21 06:24] LABS: Basophils % (auto) 0.3 % (0.0-2.0); Hematocrit 36.7 % (36.0-46.0); Lymphocytes % (auto) 29.8 % (10.0-50.0); Mean Corpuscular Hemoglobin 27.1 pg (28.0-32.0); Mean Corpuscular Hgb Conc. 34.8 g/dL (32.0-36.0); Monocytes # (auto) 0.5 10 ^3/uL (0-1.3); Monocytes % (auto) 6.8 % (0.0-12.0); Neutrophils # (auto) 4.5 10 ^3/uL (1.6-8.6); Neutrophils % (auto) 59.1 % (37.0-80.0); Nucleated Red Blood Cells % 0.2 %; Red Blood Cells 4.71 10^6/uL (4.0-5.20); Red Cell Distribution Width 13.6 % (11.8-14.3)
[2022-08-21] MEDS: ACCU-CHEK COMFORT CURVE STRIP VI SCH ×4 (06:31→21:37)
[2022-08-21] MEDS: InsuLIN REG 1unit/0.01ml Soln (100units/ml) SC SCH ×4 (06:33→21:40)
[2022-08-21 06:35] LABS: BUN/Creatinine Ratio 29.2; Calcium 9.1 mg/dL (8.5-10.1); Potassium 4.4 mmol/L (3.5-5.1)
[2022-08-21 07:30] VITALS: BP 127/75
[2022-08-21 09:00] VITALS: BP 127/75
[2022-08-21] MEDS: SODIUM CHLORIDE 0.9% 1,000 ML IV SCH ×2 (09:34→16:15)
[2022-08-21] MEDS: DAKINS QUARTER STR 0.125% (NaHypochlorite) 473 ML TOPICAL SOL TOP SCH ×2 (10:00→21:37)
[2022-08-21] MEDS: PANTOPRAZOLE 40 MG/10 ML VIAL INJ IV SCH (10:37)
[2022-08-21] MEDS: ENOXAPARIN SOD 40 MG/0.4 ML SYRINGE SC SCH (10:38)
[2022-08-21] MEDS: CEFTRIAXONE SODIUM 2 GM in D5W 5% 100 ML IV SCH (10:39)
[2022-08-21 13:00] VITALS: BP 126/70
[2022-08-21 16:14] LABS: INR 1.03 (0.9-1.15)
[2022-08-21 16:39] VITALS: BP 139/70
[2022-08-21] MEDS: ATORVASTATIN 20 MG TAB PO SCH (21:52)
[2022-08-21 22:00] VITALS: BP 118/60
[2022-08-22] MEDS: SODIUM CHLORIDE 0.9% 1,000 ML IV SCH ×3 (00:15→16:15)
[2022-08-22] MEDS: VANCOMYCIN 1GM/250ML 250 ML IV SCH ×3 (01:22→17:25)
[2022-08-22 05:00] VITALS: BP 130/80
[2022-08-22] MEDS: ACCU-CHEK COMFORT CURVE STRIP VI SCH ×4 (06:46→22:26)
[2022-08-22] MEDS: InsuLIN REG 1unit/0.01ml Soln (100units/ml) SC SCH ×4 (06:50→22:40)
[2022-08-22] MEDS: MORPHINE SULFATE INJ 2 MG/ml SYRG IV PRN ×3 (06:52→22:41)
[2022-08-22 07:30] VITALS: BP 125/79
[2022-08-22] MEDS ORDERED: SODIUM CHLORIDE LOCK 10 ML ONE (08:10)
[2022-08-22] MEDS ORDERED: PROPOFOL 10 MG/ML 20 ML IV ONE ×2 (08:10→09:24)
[2022-08-22] MEDS ORDERED: DexAMETHasone SOD PHOS 10MG/1ML VIAL INJ ONE (08:10)
[2022-08-22] MEDS ORDERED: MIDAZOLAM HCL 2MG/2ML 2ml VIAL (1mg/ml) ONE (08:10)
[2022-08-22] MEDS ORDERED: fentaNYL CITRATE 100 MCG/2 ML VL ONE (08:10)
[2022-08-22] MEDS ORDERED: ONDANSETRON HCL 4 MG/2 ML VIAL ONE (08:10)
[2022-08-22] MEDS ORDERED: ceFAZolin 1GM/50ML 100 ML IV ONE (08:11)
[2022-08-22] MEDS ORDERED: ROPIVACAINE 0.5% (5MG/ML) 20ML AMPULE IJ ONE (08:49)
[2022-08-22] MEDS ORDERED: BUPIVACAINE 0.75% INJ 10ML MPV SDV IJ ONE (08:49)
[2022-08-22 09:00] VITALS: BP 125/79
[2022-08-22] MEDS ORDERED: HYDROmorphone HCL 2 MG/ML VL/or syr IV PRN ×2 (09:15)
[2022-08-22] MEDS ORDERED: METOCLOPRAMIDE HCL 5MG/ml INJ 2ml VIAL IV PRN (09:15)
[2022-08-22] MEDS ORDERED: MORPHINE SULFATE INJ 2 MG/ml SYRG IV PRN (09:15)
[2022-08-22] MEDS ORDERED: ACCU-CHEK COMFORT CURVE STRIP VI ONE (09:15)
[2022-08-22] MEDS ORDERED: cefTRIAXone SOD 1,000 MG VL ONE (09:29)
[2022-08-22] MEDS ORDERED: ceFAZolin 1GM VL ONE (09:31)
[2022-08-22] MEDS ORDERED: BACITRACIN TOP OINT 1 UD PKG TOP ONE (09:42)
[2022-08-22] MEDS: DAKINS QUARTER STR 0.125% (NaHypochlorite) 473 ML TOPICAL SOL TOP SCH ×2 (10:00→22:00)
[2022-08-22] MEDS: PANTOPRAZOLE 40 MG/10 ML VIAL INJ IV SCH (11:22)
[2022-08-22] MEDS: ENOXAPARIN SOD 40 MG/0.4 ML SYRINGE SC SCH (11:22)
[2022-08-22 13:00] VITALS: BP 113/69
[2022-08-22] MEDS: CEFTRIAXONE SODIUM 2 GM in D5W 5% 100 ML IV SCH (13:04)
[2022-08-22] MEDS ORDERED: LIDOCAINE 1% (LOCAL ANESTH.) PF 5ml SDV ID ONE (15:15)
[2022-08-22 17:00] VITALS: BP 114/73
[2022-08-22 22:00] VITALS: BP 140/71
[2022-08-22] MEDS: SODIUM CHLOR 0.9% PF (SALINE LOCK) 10ML VIAL/SYR IV SCH (22:22)
[2022-08-22] MEDS: ATORVASTATIN 20 MG TAB PO SCH (22:41)
[2022-08-23] MEDS: VANCOMYCIN 1GM/250ML 250 ML IV SCH ×2 (01:35→08:58)
[2022-08-23] MEDS: SODIUM CHLORIDE 0.9% 1,000 ML IV SCH ×3 (01:42→14:39)
[2022-08-23 05:00] VITALS: BP 121/68
[2022-08-23] MEDS: ACCU-CHEK COMFORT CURVE STRIP VI SCH ×4 (06:32→22:19)
[2022-08-23] MEDS: InsuLIN REG 1unit/0.01ml Soln (100units/ml) SC SCH ×4 (06:41→22:00)
[2022-08-23 08:55] VITALS: BP 124/70
[2022-08-23] MEDS: ENOXAPARIN SOD 40 MG/0.4 ML SYRINGE SC SCH (08:58)
[2022-08-23] MEDS: PANTOPRAZOLE 40 MG/10 ML VIAL INJ IV SCH (08:58)
[2022-08-23] MEDS: DAKINS QUARTER STR 0.125% (NaHypochlorite) 473 ML TOPICAL SOL TOP SCH ×2 (10:00→22:00)
[2022-08-23] MEDS: CEFTRIAXONE SODIUM 2 GM in D5W 5% 100 ML IV SCH (10:28)
[2022-08-23] MEDS: SODIUM CHLOR 0.9% PF (SALINE LOCK) 10ML VIAL/SYR IV SCH ×2 (10:29→22:18)
[2022-08-23] MEDS: MORPHINE SULFATE INJ 2 MG/ml SYRG IV PRN ×2 (11:58→17:58)
[2022-08-23 13:00] VITALS: BP 131/73
[2022-08-23 16:53] VITALS: BP 118/56
[2022-08-23] MEDS: AMPICILLIN & SULBACTAM SODIUM 3 GM in SODIUM CHL 0.9% 100 ML IV SCH (17:51)
[2022-08-23 22:00] VITALS: BP 123/62
[2022-08-23] MEDS: ATORVASTATIN 20 MG TAB PO SCH (22:19)
[2022-08-24] MEDS: SODIUM CHLORIDE 0.9% 1,000 ML IV SCH ×3 (00:27→16:15)
[2022-08-24] MEDS: AMPICILLIN & SULBACTAM SODIUM 3 GM in SODIUM CHL 0.9% 100 ML IV SCH ×4 (00:27→18:36)
[2022-08-24 05:00] VITALS: BP 128/75
[2022-08-24] MEDS: ACCU-CHEK COMFORT CURVE STRIP VI SCH ×4 (06:37→21:35)
[2022-08-24] MEDS: InsuLIN REG 1unit/0.01ml Soln (100units/ml) SC SCH ×4 (06:40→21:42)
[2022-08-24 06:52] LABS: Basophils # (auto) 0 10 ^3/uL (0-0.2); Basophils % (auto) 0.1 % (0.0-2.0); Eosinophils # (auto) 0.2 10 ^3/uL (0-0.8); Eosinophils % (auto) 3.7 % (0.0-7.0); Lymphocytes # (auto) 1.1 10 ^3/uL (0.4-5.4); Lymphocytes % (auto) 17.7 % (10.0-50.0); Mean Corpuscular Hemoglobin 27.1 pg (28.0-32.0); Mean Corpuscular Hgb Conc. 34.3 g/dL (32.0-36.0); Monocytes # (auto) 0.7 10 ^3/uL (0-1.3); Monocytes % (auto) 10.8 % (0.0-12.0); Neutrophils # (auto) 4.1 10 ^3/uL (1.6-8.6); Neutrophils % (auto) 67.7 % (37.0-80.0); Nucleated Red Blood Cells % 0.1 %; Red Blood Cells 4.44 10^6/uL (4.0-5.20); Red Cell Distribution Width 13.8 % (11.8-14.3)
[2022-08-24 07:24] LABS: Calcium 8.8 mg/dL (8.5-10.1); Potassium 3.7 mmol/L (3.5-5.1)
[2022-08-24 08:00] VITALS: BP 123/67
[2022-08-24] MEDS: SODIUM CHLOR 0.9% PF (SALINE LOCK) 10ML VIAL/SYR IV SCH ×2 (10:00→21:35)
[2022-08-24] MEDS: DAKINS QUARTER STR 0.125% (NaHypochlorite) 473 ML TOPICAL SOL TOP SCH ×2 (10:00→21:35)
[2022-08-24] MEDS: ENOXAPARIN SOD 40 MG/0.4 ML SYRINGE SC SCH (10:04)
[2022-08-24] MEDS: PANTOPRAZOLE 40 MG/10 ML VIAL INJ IV SCH (10:04)
[2022-08-24] MEDS: HYDROcodone-ACET 5/325MG TAB PO PRN ×2 (10:05→16:39)
[2022-08-24 12:00] VITALS: BP 111/59
[2022-08-24 16:00] VITALS: BP 115/67
[2022-08-24] MEDS: ATORVASTATIN 20 MG TAB PO SCH (21:35)
[2022-08-24 22:00] VITALS: BP 115/69
[2022-08-25] MEDS: SODIUM CHLORIDE 0.9% 1,000 ML IV SCH ×4 (00:19→17:04)
[2022-08-25 05:00] VITALS: BP 142/71
[2022-08-25] MEDS: AMPICILLIN & SULBACTAM SODIUM 3 GM in SODIUM CHL 0.9% 100 ML IV SCH ×5 (06:00→18:25)
[2022-08-25] MEDS: ACCU-CHEK COMFORT CURVE STRIP VI SCH ×4 (06:23→22:20)
[2022-08-25] MEDS: InsuLIN REG 1unit/0.01ml Soln (100units/ml) SC SCH ×4 (06:25→22:00)
[2022-08-25] MEDS: HYDROcodone-ACET 5/325MG TAB PO PRN ×2 (08:15→18:15)
[2022-08-25 08:30] VITALS: BP 138/74
[2022-08-25 09:30] VITALS: BP 138/74
[2022-08-25] MEDS: DAKINS QUARTER STR 0.125% (NaHypochlorite) 473 ML TOPICAL SOL TOP SCH ×2 (10:00→22:00)
[2022-08-25] MEDS: PANTOPRAZOLE 40 MG/10 ML VIAL INJ IV SCH (10:53)
[2022-08-25] MEDS: ENOXAPARIN SOD 40 MG/0.4 ML SYRINGE SC SCH (10:54)
[2022-08-25] MEDS: SODIUM CHLOR 0.9% PF (SALINE LOCK) 10ML VIAL/SYR IV SCH ×2 (11:05→22:20)
[2022-08-25 12:43] VITALS: BP 121/61
[2022-08-25 16:10] VITALS: BP 109/60
[2022-08-25 22:00] VITALS: BP 124/66
[2022-08-25] MEDS: ATORVASTATIN 20 MG TAB PO SCH (22:20)
[2022-08-26] MEDS: AMPICILLIN & SULBACTAM SODIUM 3 GM in SODIUM CHL 0.9% 100 ML IV SCH ×4 (00:02→18:14)
[2022-08-26] MEDS: HYDROcodone-ACET 5/325MG TAB PO PRN (00:14)
[2022-08-26 05:00] VITALS: BP 123/70
[2022-08-26] MEDS: InsuLIN REG 1unit/0.01ml Soln (100units/ml) SC SCH ×4 (06:35→22:00)
[2022-08-26] MEDS: ACCU-CHEK COMFORT CURVE STRIP VI SCH ×4 (06:35→22:04)
[2022-08-26 08:00] VITALS: BP 133/77
[2022-08-26] MEDS: SODIUM CHLORIDE 0.9% 1,000 ML IV SCH ×2 (08:18→17:20)
[2022-08-26 08:40] VITALS: BP 133/77
[2022-08-26] MEDS: DAKINS QUARTER STR 0.125% (NaHypochlorite) 473 ML TOPICAL SOL TOP SCH ×2 (10:00→22:00)
[2022-08-26] MEDS: PANTOPRAZOLE 40 MG/10 ML VIAL INJ IV SCH (10:56)
[2022-08-26] MEDS: ENOXAPARIN SOD 40 MG/0.4 ML SYRINGE SC SCH (10:57)
[2022-08-26] MEDS: SODIUM CHLOR 0.9% PF (SALINE LOCK) 10ML VIAL/SYR IV SCH ×2 (10:58→22:03)
[2022-08-26 12:35] VITALS: BP 125/69
[2022-08-26 17:17] VITALS: BP 124/74
[2022-08-26 22:00] VITALS: BP 122/70
[2022-08-26] MEDS: ATORVASTATIN 20 MG TAB PO SCH (22:03)
[2022-08-27] MEDS: AMPICILLIN & SULBACTAM SODIUM 3 GM in SODIUM CHL 0.9% 100 ML IV SCH ×4 (00:27→18:29)
[2022-08-27] MEDS: SODIUM CHLORIDE 0.9% 1,000 ML IV SCH ×3 (00:27→18:28)
[2022-08-27] MEDS: HYDROcodone-ACET 5/325MG TAB PO PRN (03:51)
[2022-08-27 05:00] VITALS: BP 123/67
[2022-08-27] MEDS: ACCU-CHEK COMFORT CURVE STRIP VI SCH ×4 (06:26→21:41)
[2022-08-27] MEDS: InsuLIN REG 1unit/0.01ml Soln (100units/ml) SC SCH ×4 (06:26→21:41)
[2022-08-27] MEDS: SODIUM CHLOR 0.9% PF (SALINE LOCK) 10ML VIAL/SYR IV SCH ×2 (08:45→21:41)
[2022-08-27 09:00] VITALS: BP 117/72
[2022-08-27] MEDS: DAKINS QUARTER STR 0.125% (NaHypochlorite) 473 ML TOPICAL SOL TOP SCH ×2 (10:00→21:41)
[2022-08-27] MEDS: PANTOPRAZOLE 40 MG/10 ML VIAL INJ IV SCH (10:32)
[2022-08-27] MEDS: ENOXAPARIN SOD 40 MG/0.4 ML SYRINGE SC SCH (10:32)
[2022-08-27 13:00] VITALS: BP 114/66
[2022-08-27 17:00] VITALS: BP 117/78
[2022-08-27] MEDS: ATORVASTATIN 20 MG TAB PO SCH (21:40)
[2022-08-27 22:00] VITALS: BP 111/72
[2022-08-28] MEDS: AMPICILLIN & SULBACTAM SODIUM 3 GM in SODIUM CHL 0.9% 100 ML IV SCH ×4 (00:15→18:21)
[2022-08-28] MEDS: SODIUM CHLORIDE 0.9% 1,000 ML IV SCH ×3 (00:15→16:15)
[2022-08-28] MEDS: HYDROcodone-ACET 5/325MG TAB PO PRN ×2 (00:52→23:02)
[2022-08-28 05:00] VITALS: BP 109/63
[2022-08-28] MEDS: ACCU-CHEK COMFORT CURVE STRIP VI SCH ×4 (06:39→22:03)
[2022-08-28] MEDS: InsuLIN REG 1unit/0.01ml Soln (100units/ml) SC SCH ×4 (06:40→22:00)
[2022-08-28 09:00] VITALS: BP 112/68
[2022-08-28] MEDS: SODIUM CHLOR 0.9% PF (SALINE LOCK) 10ML VIAL/SYR IV SCH ×2 (10:00→22:02)
[2022-08-28] MEDS: DAKINS QUARTER STR 0.125% (NaHypochlorite) 473 ML TOPICAL SOL TOP SCH ×2 (10:00→22:00)
[2022-08-28] MEDS: PANTOPRAZOLE 40 MG/10 ML VIAL INJ IV SCH (10:53)
[2022-08-28] MEDS: ENOXAPARIN SOD 40 MG/0.4 ML SYRINGE SC SCH (10:53)
[2022-08-28 13:17] VITALS: BP 122/70
[2022-08-28 17:00] VITALS: BP 110/70
[2022-08-28 22:00] VITALS: BP 111/60
[2022-08-28] MEDS: ATORVASTATIN 20 MG TAB PO SCH (22:02)
[2022-08-29] MEDS: SODIUM CHLORIDE 0.9% 1,000 ML IV SCH ×3 (00:15→09:02)
[2022-08-29 05:00] VITALS: BP 120/67
[2022-08-29] MEDS: ACCU-CHEK COMFORT CURVE STRIP VI SCH ×2 (06:29→11:55)
[2022-08-29] MEDS: AMPICILLIN & SULBACTAM SODIUM 3 GM in SODIUM CHL 0.9% 100 ML IV SCH ×4 (06:29→13:06)
[2022-08-29] MEDS: InsuLIN REG 1unit/0.01ml Soln (100units/ml) SC SCH ×2 (06:29→11:59)
[2022-08-29 09:00] VITALS: BP 111/66
[2022-08-29] MEDS: SODIUM CHLOR 0.9% PF (SALINE LOCK) 10ML VIAL/SYR IV SCH (09:14)
[2022-08-29] MEDS: ENOXAPARIN SOD 40 MG/0.4 ML SYRINGE SC SCH (09:14)
[2022-08-29] MEDS: PANTOPRAZOLE 40 MG/10 ML VIAL INJ IV SCH (09:14)
[2022-08-29] MEDS: DAKINS QUARTER STR 0.125% (NaHypochlorite) 473 ML TOPICAL SOL TOP SCH (10:00)
[2022-08-29 13:18] VITALS: BP 115/73
[2022-08-29 13:27] VITALS: BP 115/73
== END 2022-08-29 14:15 | disposition home health service (06) | DRG 314 ==
LOC: ER 13:29 → TELE 16:36 → TELE-EAST 08-20 21:20 → EAST 08-22 22:00
PROVIDERS: ADMIT Registered Nurse; ATTEND Internal Medicine
PROC: 0Y6S0Z3 Detachment at Left 2nd Toe, Low, Open Approach (ICD-10-PCS; principal; 2022-08-22 09:03)
DX: E11.69 Type 2 diabetes mellitus with other specified complication (principal); M86.172 Other acute osteomyelitis, left ankle and foot; E11.621 Type 2 diabetes mellitus with foot ulcer; L97.529 Non-pressure chronic ulcer of other part of left foot with unspecified severity; E66.01 Morbid (severe) obesity due to excess calories; E78.00 Pure hypercholesterolemia, unspecified; L03.90 Cellulitis, unspecified; E78.5 Hyperlipidemia, unspecified; I10 Essential (primary) hypertension; Z20.822 Contact with and (suspected) exposure to COVID-19; Z83.3 Family history of diabetes mellitus; Z87.891 Personal history of nicotine dependence; Z89.429 Acquired absence of other toe(s), unspecified side; Z90.49 Acquired absence of other specified parts of digestive tract; Z79.899 Other long term (current) drug therapy; Z79.2 Long term (current) use of antibiotics; Z79.84 Long term (current) use of oral hypoglycemic drugs; Z68.31 Body mass index [BMI] 31.0-31.9, adult
CPT/HCPCS: 36415; 36569; 73630; 73700; 73718; 78315; 80048; 80053; 80061; 80202; 81001; 82010; 82962; 83036; 83605; 84443; 84702; 85025; 85610; 85730; 86850; 86900; 86901; 87040; 87075; 87076; 87077; 87186; 87205; 87426; 93925; 96360; 96361; 96372; C9113; G0378; J0690; J0696; J1100; J1815; J2250; J2405; J2543; J2704; J3490; J7060

== ENCOUNTER 2023-02-26 13:21 | Inpatient (IN) | payer MEDICAID ==
[~2023-02-26] VITALS: Ht 167.6 cm; Wt 84.5 kg
[~2023-02-26 13:21] MED LIST changes: -CEFT1INJ6 IV; -CEPH-509 PO; -CEPH-510 PO; +PIPERACILLIN-TAZOB 3.375GM 100 ML IV SCH; +SIMV10TA20 PO; -SIMV10TA84 PO; -SULF800T7 PO; -VANC1000 IV; +[UNRECOGNIZED DRUG - CODE] IV
[2023-02-26 15:02] LABS: Amphetamine Screen, Urine Pos (NEGATIVE); Barbiturate Scree,Urine Neg (NEGATIVE); Benzodiazephine Screen, Urine Neg (NEGATIVE); Cannabinoid Screen, Urine Pos (NEGATIVE); Cocaine Screen, Urine Neg (NEGATIVE); Opiate Scree,Urine Neg (NEGATIVE); Phencyclidine Screen, Urine Neg (NEGATIVE)
[2023-02-26 15:12] LABS: Basophils # (auto) 0.1 10 ^3/uL (0-0.2); Basophils % (auto) 0.6 % (0.0-2.0); Eosinophils # (auto) 0.2 10 ^3/uL (0-0.8); Eosinophils % (auto) 1.4 % (0.0-7.0); Hematocrit 41.7 % (36.0-46.0); Hemoglobin 13.9 g/dL (12.2-16.2); Lymphocytes # (auto) 2.6 10 ^3/uL (0.4-5.4); Mean Corpuscular Hemoglobin 29.2 pg (28.0-32.0); Mean Corpuscular Hgb Conc. 33.4 g/dL (32.0-36.0); Mean Corpuscular Volume 87.5 fL (80.0-100.0); Monocytes # (auto) 0.6 10 ^3/uL (0-1.3); Monocytes % (auto) 5.1 % (0.0-12.0); Neutrophils # (auto) 7.8 10 ^3/uL (1.6-8.6); Neutrophils % (auto) 69.9 % (37.0-80.0); Nucleated Red Blood Cells % 0.1 %; Red Blood Cells 4.77 10^6/uL (4.0-5.20); Red Cell Distribution Width 14.7 % (11.8-14.3); White Blood Cell 11.1 10^3/uL (4.4-10.8)
[2023-02-26 15:38] LABS: Alanine Aminotransferase 14 U/L (7-40); Albumin 4.3 g/dL (3.2-4.8); Alkaline Phosphatase 138 U/L (46-116); Anion Gap 6.5 (5-15); Aspartate Aminotransferase 10 U/L (13-40); BUN/Creatinine Ratio 13.9 (10.0-20.0); Blood Urea Nitrogen 11 mg/dL (9-23); Calcium 9.4 mg/dL (8.5-10.1); Carbon Dioxide 25.5 mmol/L (20-30); Chloride 104 mmol/L (98-107); Glucose 139 mg/dL (74-106); Potassium 3.7 mmol/L (3.5-5.1); Sodium 136 mmol/L (136-145)
[2023-02-26 15:39] LABS: Bilirubin, Total 0.3 mg/dL (0.2-1.0); Lactic Acid w/Reflex 3.2 mmol/L (0.4-2.0); Total Protein 7.6 g/dL (5.7-8.2)
[2023-02-26 15:51] LABS: CRP High Sensitivity 1.21 mg/dL (<1.0)
[2023-02-26] MEDS ORDERED: VANCOMYCIN 1GM/250ML 250 ML IV ONE (16:00)
[2023-02-26] MEDS ORDERED: PIPERACILLIN-TAZOB 3.375GM 100 ML IV ONE (16:00)
[2023-02-26] MEDS ORDERED: ACETAMINOPHEN 325 MG TAB PO PRN (19:30)
[2023-02-26] MEDS ORDERED: DEXTROSE (50%) 50ML SYRG IV PRN (19:30)
[2023-02-26] MEDS ORDERED: VANCOMYCIN PER PHARMACY 0 MG IV SCH (19:30)
[2023-02-26] MEDS: SODIUM CHLORIDE 0.9% 1,000 ML IV SCH (20:17)
[2023-02-26 20:47] LABS: INR 0.99 (0.9-1.15); Prothrombin Time 10.4 sec (9.3-11.8)
[2023-02-26 22:14] VITALS: PULSE 79; RESP 20; O2SAT 99
[2023-02-26] MEDS: ACCU-CHEK COMFORT CURVE STRIP VI SCH (22:22)
[2023-02-26] MEDS: InsuLIN REG 1unit/0.01ml Soln (100units/ml) SC SCH (22:26)
[2023-02-26] MEDS: ASCORBIC ACID 500 MG TAB PO SCH (22:27)
[2023-02-26] MEDS: PIPERACILLIN-TAZOB 3.375GM 100 ML IV SCH (23:18)
[2023-02-27] MEDS: VANCOMYCIN 1GM/250ML 250 ML IV SCH ×3 (03:37→19:49)
[2023-02-27 04:57] LABS: Rapid Influenza A Negative (Negative); Rapid Influenza B Negative (Negative)
[2023-02-27 04:58] LABS: COVID19 ANTIGEN SOFIA FIA NEGATIVE (NEGATIVE)
[2023-02-27 05:12] LABS: Basophils # (auto) 0 10 ^3/uL (0-0.2); Basophils % (auto) 0.6 % (0.0-2.0); Eosinophils # (auto) 0.2 10 ^3/uL (0-0.8); Eosinophils % (auto) 2.8 % (0.0-7.0); Hematocrit 36.1 % (36.0-46.0); Hemoglobin 12.3 g/dL (12.2-16.2); Lymphocytes % (auto) 36.1 % (10.0-50.0); Mean Corpuscular Hemoglobin 29.5 pg (28.0-32.0); Mean Corpuscular Hgb Conc. 34.1 g/dL (32.0-36.0); Mean Corpuscular Volume 86.6 fL (80.0-100.0); Monocytes # (auto) 0.5 10 ^3/uL (0-1.3); Monocytes % (auto) 6.3 % (0.0-12.0); Neutrophils # (auto) 4.6 10 ^3/uL (1.6-8.6); Neutrophils % (auto) 54.2 % (37.0-80.0); Red Blood Cells 4.17 10^6/uL (4.0-5.20); Red Cell Distribution Width 14.5 % (11.8-14.3); White Blood Cell 8.4 10^3/uL (4.4-10.8)
[2023-02-27 05:54] LABS: Alanine Aminotransferase 15 U/L (7-40); Albumin 3.4 g/dL (3.2-4.8); Alkaline Phosphatase 107 U/L (46-116); Aspartate Aminotransferase 10 U/L (13-40); BUN/Creatinine Ratio 18.8 (10.0-20.0); Bilirubin, Total 0.4 mg/dL (0.2-1.0); Blood Urea Nitrogen 15 mg/dL (9-23); Calcium 8.4 mg/dL (8.5-10.1); Chloride 105 mmol/L (98-107); Glucose 147 mg/dL (74-106); Potassium 4.1 mmol/L (3.5-5.1); Sodium 136 mmol/L (136-145); Total Protein 5.8 g/dL (5.7-8.2)
[2023-02-27] MEDS: ACCU-CHEK COMFORT CURVE STRIP VI SCH ×4 (06:48→22:37)
[2023-02-27] MEDS: InsuLIN REG 1unit/0.01ml Soln (100units/ml) SC SCH ×4 (07:07→22:35)
[2023-02-27 07:35] VITALS: PULSE 63; RESP 16; O2SAT 98
[2023-02-27] MEDS: PIPERACILLIN-TAZOB 3.375GM 100 ML IV SCH (09:48)
[2023-02-27] MEDS: ZINC SULFATE 220mg CAP or TAB PO SCH (09:52)
[2023-02-27] MEDS: MULTIPLE VITAMIN TAB PO SCH (09:52)
[2023-02-27] MEDS: ASCORBIC ACID 500 MG TAB PO SCH ×2 (09:52→22:26)
[2023-02-27] MEDS ORDERED: MORPHINE SULFATE INJ 2 MG/ml SYRG IV PRN (10:15)
[2023-02-27] MEDS ORDERED: ONDANSETRON HCL 4 MG/2 ML VIAL IV PRN (10:15)
[2023-02-27 14:00] VITALS: BP 110/70; PULSE 66; RESP 17; TEMP 97.8; O2SAT 99
[2023-02-27] MEDS: SODIUM CHLORIDE 0.9% 1,000 ML IV SCH (15:01)
[2023-02-27] MEDS: cefTRIAXone 1GM/50ML D5W 50 ML IV SCH (15:02)
[2023-02-27] MEDS: metroNIDAZOLE 500MG/100ML 100 ML IV SCH ×2 (15:02→22:26)
[2023-02-27 17:00] VITALS: BP 101/60; PULSE 67; RESP 17; TEMP 97.7; O2SAT 100
[2023-02-27] MEDS: HYDROcodone-ACET 5/325MG TAB PO PRN (19:53)
[2023-02-27 22:00] VITALS: BP 109/68; PULSE 66; RESP 18; TEMP 98.3; O2SAT 98
[2023-02-28] VITALS (7 sets, daily range): BP systolic 107–163; BP diastolic 64–87; PULSE 59–99; RESP 17–20; TEMP 97.8–98.1; O2SAT 95–100
[2023-02-28] MEDS: VANCOMYCIN 1GM/250ML 250 ML IV SCH ×3 (03:12→18:22)
[2023-02-28] MEDS: SODIUM CHLORIDE 0.9% 1,000 ML IV SCH ×2 (04:37→22:07)
[2023-02-28] MEDS: InsuLIN REG 1unit/0.01ml Soln (100units/ml) SC SCH ×4 (05:42→22:29)
[2023-02-28] MEDS: ACCU-CHEK COMFORT CURVE STRIP VI SCH ×4 (05:43→22:34)
[2023-02-28] MEDS: metroNIDAZOLE 500MG/100ML 100 ML IV SCH ×3 (05:46→22:07)
[2023-02-28 06:19] LABS: Basophils # (auto) 0 10 ^3/uL (0-0.2); Basophils % (auto) 0.3 % (0.0-2.0); Eosinophils # (auto) 0.2 10 ^3/uL (0-0.8); Eosinophils % (auto) 2.3 % (0.0-7.0); Hematocrit 34.9 % (36.0-46.0); Hemoglobin 12.3 g/dL (12.2-16.2); Lymphocytes # (auto) 2.3 10 ^3/uL (0.4-5.4); Lymphocytes % (auto) 29.1 % (10.0-50.0); Mean Corpuscular Hemoglobin 30.5 pg (28.0-32.0); Mean Corpuscular Hgb Conc. 35.2 g/dL (32.0-36.0); Mean Corpuscular Volume 86.6 fL (80.0-100.0); Monocytes # (auto) 0.4 10 ^3/uL (0-1.3); Monocytes % (auto) 5.3 % (0.0-12.0); Neutrophils # (auto) 5.1 10 ^3/uL (1.6-8.6); Nucleated Red Blood Cells % 0.1 %; Red Blood Cells 4.03 10^6/uL (4.0-5.20); Red Cell Distribution Width 14.8 % (11.8-14.3)
[2023-02-28 06:25] LABS: Anion Gap 4 (5-15); Carbon Dioxide 26 mmol/L (20-30); Chloride 107 mmol/L (98-107); Potassium 3.7 mmol/L (3.5-5.1); Sodium 137 mmol/L (136-145)
[2023-02-28 06:26] LABS: Calcium 8.5 mg/dL (8.7-10.4)
[2023-02-28 06:31] LABS: Blood Urea Nitrogen 9 mg/dL (9-23); Glucose 93 mg/dL (74-106)
[2023-02-28] MEDS: cefTRIAXone 1GM/50ML D5W 50 ML IV SCH (08:39)
[2023-02-28] MEDS: HYDROcodone-ACET 5/325MG TAB PO PRN ×2 (08:44→18:35)
[2023-02-28] MEDS: ZINC SULFATE 220mg CAP or TAB PO SCH (09:49)
[2023-02-28] MEDS: MULTIPLE VITAMIN TAB PO SCH (09:49)
[2023-02-28] MEDS: ASCORBIC ACID 500 MG TAB PO SCH ×2 (09:50→22:07)
[2023-02-28] MEDS ORDERED: ceFAZolin 1GM VL ONE (10:56)
[2023-02-28] MEDS ORDERED: ROPIVACAINE 0.5% (5MG/ML) 20ML AMPULE IJ ONE (10:56)
[2023-02-28] MEDS ORDERED: BACITRACIN TOP OINT 1 UD PKG TOP ONE (10:56)
[2023-03-01] MEDS: VANCOMYCIN 1GM/250ML 250 ML IV SCH ×3 (02:17→18:17)
[2023-03-01 05:00] VITALS: BP_SYST 114; BP_SYST 159; BP_DIAS 79; BP_DIAS 87; PULSE 102; PULSE 82; RESP 18; TEMP 98.1; O2SAT 96; O2SAT 98
[2023-03-01] MEDS: InsuLIN REG 1unit/0.01ml Soln (100units/ml) SC SCH ×4 (06:26→21:09)
[2023-03-01] MEDS: ACCU-CHEK COMFORT CURVE STRIP VI SCH ×4 (06:26→21:03)
[2023-03-01] MEDS: metroNIDAZOLE 500MG/100ML 100 ML IV SCH ×3 (06:40→21:02)
[2023-03-01] MEDS: HYDROcodone-ACET 5/325MG TAB PO PRN ×3 (06:41→21:02)
[2023-03-01 09:00] VITALS: BP 114/71; PULSE 97; RESP 16; TEMP 98.1; O2SAT 100
[2023-03-01] MEDS: MULTIPLE VITAMIN TAB PO SCH (09:19)
[2023-03-01] MEDS: cefTRIAXone 1GM/50ML D5W 50 ML IV SCH (09:19)
[2023-03-01] MEDS: ZINC SULFATE 220mg CAP or TAB PO SCH (09:19)
[2023-03-01] MEDS: ASCORBIC ACID 500 MG TAB PO SCH ×2 (09:19→21:00)
[2023-03-01 13:23] VITALS: BP 126/57; PULSE 86; RESP 19; TEMP 97.9; O2SAT 98
[2023-03-01] MEDS: SODIUM CHLORIDE 0.9% 1,000 ML IV SCH (14:10)
[2023-03-01 17:20] VITALS: BP 114/55; PULSE 65; RESP 16; TEMP 97.7; O2SAT 98
[2023-03-01 20:00] VITALS: RESP 18
[2023-03-01 22:49] VITALS: BP 131/84; PULSE 74; RESP 18; TEMP 98.3; O2SAT 98
[2023-03-02] MEDS: VANCOMYCIN 1GM/250ML 250 ML IV SCH ×3 (03:16→17:23)
[2023-03-02] MEDS: SODIUM CHLORIDE 0.9% 1,000 ML IV SCH ×2 (04:27→23:30)
[2023-03-02 04:31] VITALS: BP 126/72; PULSE 60; RESP 18; TEMP 97.4; O2SAT 98
[2023-03-02] MEDS: metroNIDAZOLE 500MG/100ML 100 ML IV SCH ×3 (05:13→21:11)
[2023-03-02] MEDS: ACCU-CHEK COMFORT CURVE STRIP VI SCH ×4 (06:24→21:03)
[2023-03-02] MEDS: InsuLIN REG 1unit/0.01ml Soln (100units/ml) SC SCH ×4 (06:25→21:05)
[2023-03-02] MEDS: DOCUSATE SOD 100 MG CAP PO PRN ×2 (08:11→21:11)
[2023-03-02] MEDS: cefTRIAXone 1GM/50ML D5W 50 ML IV SCH (08:12)
[2023-03-02 09:00] VITALS: BP_SYST 121; BP_SYST 138; BP_DIAS 62; BP_DIAS 69; PULSE 56; PULSE 66; RESP 19; RESP 22; TEMP 97.3; TEMP 97.6; O2SAT 100; O2SAT 99
[2023-03-02] MEDS: ASCORBIC ACID 500 MG TAB PO SCH ×2 (11:33→21:11)
[2023-03-02] MEDS: ZINC SULFATE 220mg CAP or TAB PO SCH (11:33)
[2023-03-02] MEDS: MULTIPLE VITAMIN TAB PO SCH (11:33)
[2023-03-02] MEDS: HYDROcodone-ACET 5/325MG TAB PO PRN ×2 (11:36→19:27)
[2023-03-02 13:01] VITALS: BP 128/69; PULSE 62; RESP 18; TEMP 97.9; O2SAT 98
[2023-03-02 17:00] VITALS: BP 101/68; PULSE 66; RESP 18; TEMP 97.8; O2SAT 100
[2023-03-02 20:00] VITALS: RESP 18
[2023-03-02 21:41] VITALS: BP 119/69; PULSE 77; RESP 18; TEMP 98.2; O2SAT 98
[2023-03-03] VITALS (7 sets, daily range): BP systolic 97–139; BP diastolic 67–74; PULSE 73–93; RESP 18–20; TEMP 97.2–98.3; O2SAT 94–99
[2023-03-03] MEDS: VANCOMYCIN 1GM/250ML 250 ML IV SCH ×3 (01:17→17:44)
[2023-03-03] MEDS: metroNIDAZOLE 500MG/100ML 100 ML IV SCH ×3 (05:13→21:53)
[2023-03-03] MEDS: InsuLIN REG 1unit/0.01ml Soln (100units/ml) SC SCH ×4 (06:18→21:49)
[2023-03-03] MEDS: ACCU-CHEK COMFORT CURVE STRIP VI SCH ×4 (06:18→21:45)
[2023-03-03 06:43] LABS: Basophils # (auto) 0 10 ^3/uL (0-0.2); Basophils % (auto) 0.5 % (0.0-2.0); Eosinophils # (auto) 0.2 10 ^3/uL (0-0.8); Eosinophils % (auto) 2.3 % (0.0-7.0); Hematocrit 40.7 % (36.0-46.0); Hemoglobin 13.8 g/dL (12.2-16.2); Lymphocytes # (auto) 3.6 10 ^3/uL (0.4-5.4); Lymphocytes % (auto) 37.1 % (10.0-50.0); Mean Corpuscular Hemoglobin 29.2 pg (28.0-32.0); Mean Corpuscular Hgb Conc. 34.1 g/dL (32.0-36.0); Mean Corpuscular Volume 85.8 fL (80.0-100.0); Monocytes # (auto) 0.7 10 ^3/uL (0-1.3); Monocytes % (auto) 7.7 % (0.0-12.0); Neutrophils # (auto) 5.1 10 ^3/uL (1.6-8.6); Neutrophils % (auto) 52.4 % (37.0-80.0); Nucleated Red Blood Cells % 0.1 %; Red Blood Cells 4.74 10^6/uL (4.0-5.20); Red Cell Distribution Width 14.4 % (11.8-14.3); White Blood Cell 9.7 10^3/uL (4.4-10.8)
[2023-03-03 07:01] LABS: Chloride 104 mmol/L (98-107); Potassium 4.4 mmol/L (3.5-5.1); Sodium 136 mmol/L (136-145)
[2023-03-03 07:02] LABS: Anion Gap 5 (5-15); Calcium 8.8 mg/dL (8.7-10.4); Carbon Dioxide 27 mmol/L (20-30)
[2023-03-03 07:07] LABS: Glucose 125 mg/dL (74-106)
[2023-03-03 07:08] LABS: Albumin 3.6 g/dL (3.2-4.8); Blood Urea Nitrogen 12 mg/dL (9-23)
[2023-03-03 07:09] LABS: Phosphorus 3.5 mg/dL (2.4-5.1)
[2023-03-03] MEDS: SODIUM CHLORIDE 0.9% 1,000 ML IV SCH (08:47)
[2023-03-03] MEDS: cefTRIAXone 1GM/50ML D5W 50 ML IV SCH (08:47)
[2023-03-03] MEDS: MULTIPLE VITAMIN TAB PO SCH (10:45)
[2023-03-03] MEDS: ZINC SULFATE 220mg CAP or TAB PO SCH (10:46)
[2023-03-03] MEDS: ASCORBIC ACID 500 MG TAB PO SCH ×2 (10:46→21:52)
[2023-03-03] MEDS: ENOXAPARIN SOD 40 MG/0.4 ML SYRINGE SC SCH (12:03)
[2023-03-03] MEDS: DOCUSATE SOD 100 MG CAP PO PRN (21:52)
[2023-03-04] MEDS: VANCOMYCIN 1GM/250ML 250 ML IV SCH ×3 (01:37→18:30)
[2023-03-04 05:00] VITALS: BP 103/69; PULSE 73; RESP 18; TEMP 98.3; O2SAT 99
[2023-03-04] MEDS: metroNIDAZOLE 500MG/100ML 100 ML IV SCH ×3 (05:13→22:09)
[2023-03-04] MEDS: InsuLIN REG 1unit/0.01ml Soln (100units/ml) SC SCH ×4 (06:11→22:20)
[2023-03-04] MEDS: ACCU-CHEK COMFORT CURVE STRIP VI SCH ×4 (06:11→22:21)
[2023-03-04 09:01] VITALS: BP 122/75; PULSE 69; RESP 16; TEMP 98.5; O2SAT 95
[2023-03-04] MEDS: ASCORBIC ACID 500 MG TAB PO SCH ×2 (10:07→22:09)
[2023-03-04] MEDS: ZINC SULFATE 220mg CAP or TAB PO SCH (10:07)
[2023-03-04] MEDS: ENOXAPARIN SOD 40 MG/0.4 ML SYRINGE SC SCH (10:07)
[2023-03-04] MEDS: MULTIPLE VITAMIN TAB PO SCH (10:07)
[2023-03-04] MEDS: cefTRIAXone 1GM/50ML D5W 50 ML IV SCH (10:07)
[2023-03-04 13:15] VITALS: BP 108/65; PULSE 68; RESP 20; TEMP 98.1; O2SAT 99
[2023-03-04] MEDS: HYDROcodone-ACET 5/325MG TAB PO PRN (13:21)
[2023-03-04] MEDS: SODIUM CHLORIDE 0.9% 1,000 ML IV SCH (13:42)
[2023-03-04 16:56] VITALS: BP 115/77; PULSE 85; RESP 20; TEMP 98.5; O2SAT 97
[2023-03-04 20:00] VITALS: BP 117/70; PULSE 97; RESP 18; TEMP 98; O2SAT 99
[2023-03-04 22:00] VITALS: BP 117/70; PULSE 97; RESP 18; TEMP 98; O2SAT 99
[2023-03-05] MEDS: SODIUM CHLORIDE 0.9% 1,000 ML IV SCH (01:39)
[2023-03-05] MEDS: VANCOMYCIN 1GM/250ML 250 ML IV SCH ×2 (01:46→10:59)
[2023-03-05 05:00] VITALS: BP 114/71; PULSE 79; RESP 18; TEMP 98.1; O2SAT 99
[2023-03-05] MEDS: ACCU-CHEK COMFORT CURVE STRIP VI SCH ×3 (06:00→17:00)
[2023-03-05] MEDS: metroNIDAZOLE 500MG/100ML 100 ML IV SCH ×2 (06:00→14:00)
[2023-03-05] MEDS: InsuLIN REG 1unit/0.01ml Soln (100units/ml) SC SCH ×3 (06:08→17:00)
[2023-03-05 08:00] VITALS: BP 120/86; PULSE 73; RESP 18; TEMP 98.6; O2SAT 94
[2023-03-05] MEDS: ENOXAPARIN SOD 40 MG/0.4 ML SYRINGE SC SCH (09:28)
[2023-03-05] MEDS: ASCORBIC ACID 500 MG TAB PO SCH (09:29)
[2023-03-05] MEDS: MULTIPLE VITAMIN TAB PO SCH (09:29)
[2023-03-05] MEDS: ZINC SULFATE 220mg CAP or TAB PO SCH (09:29)
[2023-03-05] MEDS: cefTRIAXone 1GM/50ML D5W 50 ML IV SCH (09:29)
[2023-03-05] MEDS ORDERED: AUG875T PO (12:54)
[2023-03-05 13:00] VITALS: BP 112/72; PULSE 96; RESP 18; TEMP 98.7; O2SAT 98
[2023-03-05 17:00] VITALS: BP 116/78; PULSE 118; RESP 20; TEMP 98.6; O2SAT 100
[2023-03-05 17:18] VITALS: BP 116/78; PULSE 118; RESP 20; TEMP 98; O2SAT 100
== END 2023-03-05 18:45 | disposition home health service (06) | DRG 710 ==
LOC: ER 13:21 → OVERFLOW 19:29 → CENTRAL 02-27 13:48
PROVIDERS: ADMIT Nurse Practitioner Family; ATTEND Nurse Practitioner Acute Care
PROC: 0Y6R0Z3 Detachment at Right 2nd Toe, Low, Open Approach (ICD-10-PCS; principal; 2023-02-28 12:26)
DX: A41.01 Sepsis due to Methicillin susceptible Staphylococcus aureus (principal); L03.115 Cellulitis of right lower limb; E11.621 Type 2 diabetes mellitus with foot ulcer; L97.519 Non-pressure chronic ulcer of other part of right foot with unspecified severity; E11.69 Type 2 diabetes mellitus with other specified complication; E66.9 Obesity, unspecified; E78.5 Hyperlipidemia, unspecified; I10 Essential (primary) hypertension; B95.4 Other streptococcus as the cause of diseases classified elsewhere; Z20.822 Contact with and (suspected) exposure to COVID-19; M86.8X7 Other osteomyelitis, ankle and foot; Z83.3 Family history of diabetes mellitus; Z90.49 Acquired absence of other specified parts of digestive tract; Z98.51 Tubal ligation status; M20.41 Other hammer toe(s) (acquired), right foot; F19.10 Other psychoactive substance abuse, uncomplicated
CPT/HCPCS: 36415; 73630; 73700; 73718; 80048; 80053; 80202; 80307; 81025; 82040; 82565; 82962; 83605; 84100; 85025; 85610; 86141; 87040; 87070; 87075; 87077; 87081; 87186; 87205; 87426; 87804; 96365; 96366; 96367; G0378; J0690; J0696; J1815; J2405; J2543; J3490

== ENCOUNTER 2023-03-26 22:34 | Inpatient (IN) | payer MEDICAID ==
[~2023-03-26] VITALS: Ht 167.6 cm; Wt 88.5 kg
[~2023-03-26 22:34] MED LIST changes: +AUG875T PO; -PIPERACILLIN-TAZOB 3.375GM 100 ML IV SCH; -[UNRECOGNIZED DRUG - CODE] IV
[2023-03-26 23:11] LABS: Basophils # (auto) 0.1 10 ^3/uL (0-0.2); Basophils % (auto) 0.5 % (0.0-2.0); Eosinophils # (auto) 0.2 10 ^3/uL (0-0.8); Hematocrit 36.5 % (36.0-46.0); Hemoglobin 12.3 g/dL (12.2-16.2); Lymphocytes # (auto) 3.4 10 ^3/uL (0.4-5.4); Lymphocytes % (auto) 29.7 % (10.0-50.0); Mean Corpuscular Hemoglobin 29.4 pg (28.0-32.0); Mean Corpuscular Hgb Conc. 33.9 g/dL (32.0-36.0); Mean Corpuscular Volume 86.8 fL (80.0-100.0); Monocytes # (auto) 0.7 10 ^3/uL (0-1.3); Neutrophils # (auto) 7.1 10 ^3/uL (1.6-8.6); Neutrophils % (auto) 61.8 % (37.0-80.0); Red Cell Distribution Width 13.8 % (11.8-14.3); White Blood Cell 11.4 10^3/uL (4.4-10.8)
[2023-03-26 23:30] LABS: Alanine Aminotransferase 13 U/L (7-40); Alkaline Phosphatase 134 U/L (46-116); Anion Gap 8 (5-15); Aspartate Aminotransferase 17 U/L (13-40); BUN/Creatinine Ratio 10.9 (10.0-20.0); Blood Urea Nitrogen 10 mg/dL (9-23); Calcium 8.9 mg/dL (8.7-10.4); Carbon Dioxide 28 mmol/L (20-30); Chloride 104 mmol/L (98-107); Glucose 190 mg/dL (74-106); Potassium 3.9 mmol/L (3.5-5.1); Sodium 140 mmol/L (136-145)
[2023-03-26 23:31] LABS: Bilirubin, Total < 0.2 mg/dL (0.2-1.0); Total Protein 7.5 g/dL (5.7-8.2)
[2023-03-27 00:20] LABS: Erythrocyte Sedimentation Rate 28 mm/hr (0-20)
[2023-03-27 01:28] VITALS: PULSE 84; RESP 20; O2SAT 98
[2023-03-27] MEDS ORDERED: ONDANSETRON HCL 4 MG/2 ML VIAL IV ONE (02:15)
[2023-03-27] MEDS ORDERED: MORPHINE SULFATE 4 MG/ML SYR/VIAL IV ONE (02:15)
[2023-03-27] MEDS ORDERED: VANCOMYCIN PER PHARMACY 0 MG IV SCH (03:00)
[2023-03-27] MEDS ORDERED: ONDANSETRON HCL 4 MG/2 ML VIAL IV PRN ×2 (03:00→10:00)
[2023-03-27] MEDS ORDERED: DEXTROSE (50%) 50ML SYRG IV PRN (03:00)
[2023-03-27 03:35] LABS: INR 1.01 (0.9-1.15); Partial Thromboplastin Time 27.8 SEC (24.5-34.5); Prothrombin Time 10.6 sec (9.3-11.8)
[2023-03-27] MEDS ORDERED: VANCOMYCIN 1GM/250ML 250 ML IV ONE (03:45)
[2023-03-27] MEDS: MORPHINE SULFATE INJ 2 MG/ml SYRG IV PRN ×2 (05:40→15:48)
[2023-03-27] MEDS: InsuLIN REG 1unit/0.01ml Soln (100units/ml) SC SCH ×3 (05:44→23:44)
[2023-03-27] MEDS: ACCU-CHEK COMFORT CURVE STRIP VI SCH ×3 (05:44→23:44)
[2023-03-27] MEDS ORDERED: ceFAZolin 1GM/50ML 100 ML IV ONE (08:18)
[2023-03-27] MEDS ORDERED: NEOMYCIN-BACITRACIN-POLYM 15GM TOP OINT TOP ONE (08:27)
[2023-03-27] MEDS ORDERED: ROPIVACAINE 0.5% (5MG/ML) 20ML AMPULE IJ ONE (08:27)
[2023-03-27] MEDS ORDERED: ceFAZolin 1GM VL ONE (08:27)
[2023-03-27] MEDS ORDERED: fentaNYL CITRATE 100 MCG/2 ML VL ONE (09:03)
[2023-03-27] MEDS ORDERED: PROPOFOL 10 MG/ML 20 ML IV ONE (09:03)
[2023-03-27] MEDS ORDERED: ONDANSETRON HCL 4 MG/2 ML VIAL ONE (09:07)
[2023-03-27] MEDS ORDERED: ePHEDrine SULFATE 50 MG/ML AMP ONE (09:07)
[2023-03-27 09:45] VITALS: RESP 9; O2SAT 100
[2023-03-27] MEDS ORDERED: HYDROmorphone HCL 2 MG/ML VL/or syr IV PRN (10:00)
[2023-03-27] MEDS ORDERED: MEPERIDINE HCL (25 MG/ML) 1ML VIAL IV PRN (10:00)
[2023-03-27 15:05] VITALS: RESP 18; O2SAT 98
[2023-03-27] MEDS: VANCOMYCIN 1GM/250ML 250 ML IV SCH (15:42)
[2023-03-27 16:28] VITALS: BP 105/61; PULSE 67; RESP 20; TEMP 97.5; O2SAT 100
[2023-03-27 21:34] VITALS: BP 103/49; PULSE 62; RESP 18; TEMP 97.6; O2SAT 97
[2023-03-28 08:00] VITALS: BP 115/60; PULSE 70; RESP 20; TEMP 98.3; O2SAT 100
[2023-03-28 11:20] LABS: Alanine Aminotransferase 19 U/L (7-40); Albumin 3.1 g/dL (3.2-4.8); Alkaline Phosphatase 108 U/L (46-116); Anion Gap 5 (5-15); Aspartate Aminotransferase 18 U/L (13-40); BUN/Creatinine Ratio 11.3 (10.0-20.0); Bilirubin, Total 0.2 mg/dL (0.2-1.0); Blood Urea Nitrogen 7 mg/dL (9-23); Calcium 8.3 mg/dL (8.5-10.1); Carbon Dioxide 28 mmol/L (20-30); Chloride 105 mmol/L (98-107); Glucose 115 mg/dL (74-106); Potassium 4.1 mmol/L (3.5-5.1); Sodium 138 mmol/L (136-145)
[2023-03-28 12:00] VITALS: BP 124/70; PULSE 58; RESP 20; TEMP 98.2; O2SAT 98
[2023-03-28] MEDS ORDERED: ACETAMINOPHEN 500 MG TAB PO PRN (12:00)
[2023-03-28] MEDS ORDERED: DOCUSATE SOD 100 MG CAP PO PRN (12:00)
[2023-03-28] MEDS ORDERED: DEXTROSE (50%) 50ML SYRG IV PRN (12:00)
[2023-03-28 12:04] LABS: Basophils # (auto) 0.1 10 ^3/uL (0-0.2); Basophils % (auto) 0.6 % (0.0-2.0); Eosinophils # (auto) 0.2 10 ^3/uL (0-0.8); Eosinophils % (auto) 2.4 % (0.0-7.0); Hematocrit 35.1 % (36.0-46.0); Hemoglobin 11.9 g/dL (12.2-16.2); Lymphocytes # (auto) 2.9 10 ^3/uL (0.4-5.4); Lymphocytes % (auto) 31.4 % (10.0-50.0); Mean Corpuscular Hemoglobin 29.4 pg (28.0-32.0); Mean Corpuscular Hgb Conc. 33.9 g/dL (32.0-36.0); Mean Corpuscular Volume 86.5 fL (80.0-100.0); Monocytes # (auto) 0.5 10 ^3/uL (0-1.3); Monocytes % (auto) 5.8 % (0.0-12.0); Neutrophils # (auto) 5.5 10 ^3/uL (1.6-8.6); Neutrophils % (auto) 59.8 % (37.0-80.0); Nucleated Red Blood Cells % 0.1 %; Red Blood Cells 4.05 10^6/uL (4.0-5.20); Red Cell Distribution Width 13.6 % (11.8-14.3); White Blood Cell 9.2 10^3/uL (4.4-10.8)
[2023-03-28 16:00] VITALS: BP 116/68; PULSE 63; RESP 20; TEMP 97.9; O2SAT 99
[2023-03-28] MEDS: VANCOMYCIN 1GM/250ML 250 ML IV SCH ×2 (16:18→23:28)
[2023-03-28] MEDS: InsuLIN REG 1unit/0.01ml Soln (100units/ml) SC SCH ×2 (17:00→21:44)
[2023-03-28] MEDS: ACCU-CHEK COMFORT CURVE STRIP VI SCH ×2 (17:04→21:45)
[2023-03-28 17:11] LABS: INR 1.02 (0.9-1.15); Prothrombin Time 10.7 sec (9.3-11.8)
[2023-03-28] MEDS: MORPHINE SULFATE INJ 2 MG/ml SYRG IV PRN ×2 (17:31→21:43)
[2023-03-28] MEDS ORDERED: LIDOCAINE 1% (LOCAL ANESTH.) PF 5ml SDV ID ONE (19:00)
[2023-03-28 21:56] VITALS: BP 122/74; PULSE 65; RESP 16; TEMP 98; O2SAT 98
[2023-03-28] MEDS: SODIUM CHLOR 0.9% PF (SALINE LOCK) 10ML VIAL/SYR IV SCH (22:00)
[2023-03-28] MEDS ORDERED: VANCOMYCIN 1GM/250ML 250 ML IV SCH (22:00)
[2023-03-29 05:00] VITALS: BP 128/66; PULSE 64; RESP 16; TEMP 98.3; O2SAT 96
[2023-03-29] MEDS: ACCU-CHEK COMFORT CURVE STRIP VI SCH ×4 (06:33→21:46)
[2023-03-29] MEDS: InsuLIN REG 1unit/0.01ml Soln (100units/ml) SC SCH ×4 (06:33→21:46)
[2023-03-29 08:00] VITALS: BP 112/70; PULSE 54; RESP 20; TEMP 98.4; O2SAT 98
[2023-03-29] MEDS: VANCOMYCIN 1GM/250ML 250 ML IV SCH ×2 (08:26→15:55)
[2023-03-29] MEDS: SODIUM CHLOR 0.9% PF (SALINE LOCK) 10ML VIAL/SYR IV SCH ×2 (08:27→21:47)
[2023-03-29] MEDS: MORPHINE SULFATE INJ 2 MG/ml SYRG IV PRN (08:28)
[2023-03-29 12:00] VITALS: BP 109/71; PULSE 64; RESP 20; TEMP 98.3; O2SAT 98
[2023-03-29 16:00] VITALS: BP 123/71; PULSE 70; RESP 18; TEMP 98.5; O2SAT 98
[2023-03-29 22:00] VITALS: BP 120/75; PULSE 69; RESP 16; TEMP 98.5; O2SAT 98
[2023-03-30] VITALS (7 sets, daily range): BP systolic 98–147; BP diastolic 63–77; PULSE 63–92; RESP 16–18; TEMP 97.5–98.2; O2SAT 95–100
[2023-03-30] MEDS: VANCOMYCIN 1GM/250ML 250 ML IV SCH ×4 (00:26→23:19)
[2023-03-30] MEDS: MORPHINE SULFATE INJ 2 MG/ml SYRG IV PRN (00:27)
[2023-03-30] MEDS: InsuLIN REG 1unit/0.01ml Soln (100units/ml) SC SCH ×4 (06:13→21:34)
[2023-03-30] MEDS: ACCU-CHEK COMFORT CURVE STRIP VI SCH ×4 (06:13→21:34)
[2023-03-30] MEDS: SODIUM CHLOR 0.9% PF (SALINE LOCK) 10ML VIAL/SYR IV SCH ×2 (08:25→21:34)
[2023-03-30] MEDS: HYDROcodone-ACET 5/325MG TAB PO PRN ×2 (08:34→14:35)
[2023-03-30] MEDS: DAKINS HALF STR 0.25% (NaHypochlorite) 473 ML TOPICAL SOL TOP SCH (14:25)
[2023-03-31 05:00] VITALS: BP 118/69; PULSE 88; RESP 18; TEMP 98.4; O2SAT 98
[2023-03-31] MEDS: ACCU-CHEK COMFORT CURVE STRIP VI SCH ×4 (06:24→22:01)
[2023-03-31] MEDS: InsuLIN REG 1unit/0.01ml Soln (100units/ml) SC SCH ×5 (06:25→22:06)
[2023-03-31] MEDS: VANCOMYCIN 1GM/250ML 250 ML IV SCH ×3 (07:55→23:09)
[2023-03-31 08:30] VITALS: BP 105/67; PULSE 71; RESP 17; TEMP 98.1
[2023-03-31] MEDS: SODIUM CHLOR 0.9% PF (SALINE LOCK) 10ML VIAL/SYR IV SCH ×2 (10:16→22:01)
[2023-03-31 13:00] VITALS: BP 97/76; PULSE 79; RESP 18; TEMP 98.3; O2SAT 98
[2023-03-31] MEDS: HYDROcodone-ACET 5/325MG TAB PO PRN (15:18)
[2023-03-31 17:08] VITALS: BP 127/60; PULSE 75; RESP 19; TEMP 97.7; O2SAT 98
[2023-03-31 20:00] VITALS: RESP 16
[2023-03-31 22:00] VITALS: BP 108/60; PULSE 68; RESP 19; TEMP 98.3; O2SAT 96
[2023-04-01 05:00] VITALS: BP 110/66; PULSE 68; RESP 17; TEMP 98.2; O2SAT 98
[2023-04-01] MEDS: ACCU-CHEK COMFORT CURVE STRIP VI SCH ×4 (05:48→21:15)
[2023-04-01] MEDS: InsuLIN REG 1unit/0.01ml Soln (100units/ml) SC SCH ×4 (06:04→21:17)
[2023-04-01 09:00] VITALS: BP 111/65; PULSE 78; RESP 17; TEMP 97.8; O2SAT 97
[2023-04-01] MEDS: VANCOMYCIN 1GM/250ML 250 ML IV SCH ×2 (09:27→17:02)
[2023-04-01] MEDS: SODIUM CHLOR 0.9% PF (SALINE LOCK) 10ML VIAL/SYR IV SCH ×2 (09:28→21:15)
[2023-04-01] MEDS: HYDROcodone-ACET 5/325MG TAB PO PRN (12:06)
[2023-04-01 13:07] VITALS: BP 117/67; PULSE 63; RESP 17; TEMP 97.9; O2SAT 97
[2023-04-01] MEDS ORDERED: levoFLOXacin 500MG 100 ML IV ONE (16:00)
[2023-04-01 17:00] VITALS: BP 113/63; PULSE 80; RESP 18; TEMP 98.2; O2SAT 98
[2023-04-01] MEDS: DAKINS HALF STR 0.25% (NaHypochlorite) 473 ML TOPICAL SOL TOP SCH (17:02)
[2023-04-01 20:00] VITALS: RESP 16
[2023-04-01 22:00] VITALS: BP 122/69; PULSE 63; RESP 16; O2SAT 99
[2023-04-02] MEDS: VANCOMYCIN 1GM/250ML 250 ML IV SCH ×3 (00:03→18:57)
[2023-04-02 04:39] VITALS: BP 111/59; PULSE 89; RESP 16; TEMP 98.2; O2SAT 99
[2023-04-02 06:05] LABS: Anion Gap 6 (5-15); Carbon Dioxide 29 mmol/L (20-30); Chloride 102 mmol/L (98-107); Potassium 4.2 mmol/L (3.5-5.1); Sodium 137 mmol/L (136-145)
[2023-04-02 06:07] LABS: Calcium 9.5 mg/dL (8.7-10.4)
[2023-04-02 06:11] LABS: BUN/Creatinine Ratio 20.3 (10.0-20.0); Blood Urea Nitrogen 16 mg/dL (9-23); Glucose 157 mg/dL (74-106)
[2023-04-02] MEDS: ACCU-CHEK COMFORT CURVE STRIP VI SCH ×3 (06:11→17:42)
[2023-04-02] MEDS: InsuLIN REG 1unit/0.01ml Soln (100units/ml) SC SCH ×3 (06:16→17:44)
[2023-04-02 09:00] VITALS: BP 112/64; PULSE 85; RESP 19; TEMP 98.4; O2SAT 98
[2023-04-02] MEDS ORDERED: levoFLOXacin 500MG 100 ML IV SCH (10:00)
[2023-04-02] MEDS: DAKINS HALF STR 0.25% (NaHypochlorite) 473 ML TOPICAL SOL TOP SCH (10:21)
[2023-04-02] MEDS: SODIUM CHLOR 0.9% PF (SALINE LOCK) 10ML VIAL/SYR IV SCH (10:21)
[2023-04-02 12:57] VITALS: BP 113/67; PULSE 79; RESP 18; TEMP 98.3; O2SAT 99
[2023-04-02] MEDS ORDERED: CEFEPIME 2GM/50ML NS 50 ML IV ONE (14:30)
[2023-04-02 17:08] VITALS: BP 93/56; PULSE 74; RESP 17; TEMP 98.2; O2SAT 98
== END 2023-04-02 20:20 | disposition home health service (06) | DRG 314 ==
LOC: ER 22:34 → OVERFLOW 03-27 02:58 → EAST 03-27 13:50
PROVIDERS: ADMIT Nurse Practitioner; ATTEND Nurse Practitioner Acute Care
PROC: 0Y6R0Z0 Detachment at Right 2nd Toe, Complete, Open Approach (ICD-10-PCS; principal; 2023-03-27 08:58)
PROC: 05HY33Z Insertion of Infusion Device into Upper Vein, Percutaneous Approach (ICD-10-PCS; 2023-03-28)
PROC: B54MZZA Ultrasonography of Right Upper Extremity Veins, Guidance (ICD-10-PCS; 2023-03-28)
DX: T87.43 Infection of amputation stump, right lower extremity (principal); E11.69 Type 2 diabetes mellitus with other specified complication; M86.8X7 Other osteomyelitis, ankle and foot; L03.031 Cellulitis of right toe; E66.9 Obesity, unspecified; E78.5 Hyperlipidemia, unspecified; F17.210 Nicotine dependence, cigarettes, uncomplicated; F19.90 Other psychoactive substance use, unspecified, uncomplicated; Y83.8 Other surgical procedures as the cause of abnormal reaction of the patient, or of later complication, without mention of misadventure at the time of the procedure; I10 Essential (primary) hypertension; Z91.199 Patient's noncompliance with other medical treatment and regimen due to unspecified reason; Z68.31 Body mass index [BMI] 31.0-31.9, adult; Z90.49 Acquired absence of other specified parts of digestive tract; Z83.3 Family history of diabetes mellitus; Y92.89 Other specified places as the place of occurrence of the external cause
CPT/HCPCS: 36415; 36569; 71045; 80048; 80053; 80202; 82565; 82962; 84702; 85025; 85610; 85652; 85730; 86141; 86850; 86900; 86901; 87077; 87186; 87205; G0378; J0690; J0692; J1815; J1956; J2405; J2704

== ENCOUNTER 2023-04-23 15:14 | Inpatient (IN) | payer MEDICAID ==
[~2023-04-23] VITALS: Ht 167.6 cm; Wt 84.0 kg
[2023-04-23 16:06] LABS: Basophils # (auto) 0.1 10 ^3/uL (0-0.2); Basophils % (auto) 0.6 % (0.0-2.0); Eosinophils # (auto) 0.3 10 ^3/uL (0-0.8); Eosinophils % (auto) 3.7 % (0.0-7.0); Hematocrit 37.5 % (36.0-46.0); Hemoglobin 12.6 g/dL (12.2-16.2); Lymphocytes # (auto) 3.1 10 ^3/uL (0.4-5.4); Lymphocytes % (auto) 35.7 % (10.0-50.0); Mean Corpuscular Hemoglobin 29.1 pg (28.0-32.0); Mean Corpuscular Hgb Conc. 33.7 g/dL (32.0-36.0); Mean Corpuscular Volume 86.4 fL (80.0-100.0); Monocytes # (auto) 0.5 10 ^3/uL (0-1.3); Monocytes % (auto) 6.1 % (0.0-12.0); Neutrophils # (auto) 4.7 10 ^3/uL (1.6-8.6); Neutrophils % (auto) 53.9 % (37.0-80.0); Nucleated Red Blood Cells % 0.1 %; Red Blood Cells 4.34 10^6/uL (4.0-5.20); Red Cell Distribution Width 14.9 % (11.8-14.3); White Blood Cell 8.8 10^3/uL (4.4-10.8)
[2023-04-23 16:31] LABS: Alanine Aminotransferase 10 U/L (7-40); Albumin 4.2 g/dL (3.2-4.8); Alkaline Phosphatase 134 U/L (46-116); Anion Gap 4 (5-15); Aspartate Aminotransferase 14 U/L (13-40); BUN/Creatinine Ratio 11.4 (10.0-20.0); Bilirubin, Total 0.2 mg/dL (0.2-1.0); Blood Urea Nitrogen 9 mg/dL (9-23); Calcium 8.9 mg/dL (8.7-10.4); Carbon Dioxide 29 mmol/L (20-30); Chloride 105 mmol/L (98-107); Glucose 140 mg/dL (74-106); Potassium 4.2 mmol/L (3.5-5.1); Sodium 138 mmol/L (136-145); Total Protein 7.2 g/dL (5.7-8.2)
[2023-04-23] MEDS ORDERED: VANCOMYCIN 1GM/250ML 250 ML IV ONE (17:00)
[2023-04-23] MEDS ORDERED: ONDANSETRON HCL 4 MG/2 ML VIAL IV PRN (17:15)
[2023-04-23] MEDS ORDERED: ACETAMINOPHEN 325 MG TAB PO PRN (17:15)
[2023-04-23] MEDS ORDERED: MORPHINE SULFATE INJ 2 MG/ml SYRG IV PRN (17:15)
[2023-04-23] MEDS ORDERED: DOCUSATE SOD 100 MG CAP PO PRN (17:15)
[2023-04-23] MEDS ORDERED: hydrALAZINE HCL 20 MG/ML VL IV PRN (17:30)
[2023-04-23] MEDS ORDERED: DEXTROSE (50%) 50ML SYRG IV PRN (17:30)
[2023-04-23] MEDS: SODIUM CHLORIDE 0.9% 1,000 ML IV SCH (18:50)
[2023-04-23 19:31] LABS: INR 0.95 (0.9-1.15)
[2023-04-23] MEDS: ACCU-CHEK COMFORT CURVE STRIP VI SCH (22:29)
[2023-04-23] MEDS: HYDROcodone-ACET 5/325MG TAB PO PRN (22:35)
[2023-04-23] MEDS: InsuLIN REG 1unit/0.01ml Soln (100units/ml) SC SCH (22:36)
[2023-04-23] MEDS: CEFEPIME 1GM/ 50ML 50 ML IV SCH (22:36)
[2023-04-24] MEDS: SODIUM CHLORIDE 0.9% 1,000 ML IV SCH ×2 (03:40→10:55)
[2023-04-24] MEDS: CEFEPIME 1GM/ 50ML 50 ML IV SCH ×3 (06:39→21:35)
[2023-04-24] MEDS: ACCU-CHEK COMFORT CURVE STRIP VI SCH ×4 (06:47→21:41)
[2023-04-24] MEDS: InsuLIN REG 1unit/0.01ml Soln (100units/ml) SC SCH ×4 (06:50→21:49)
[2023-04-24 07:23] LABS: Basophils # (auto) 0 10 ^3/uL (0-0.2); Basophils % (auto) 0.3 % (0.0-2.0); Eosinophils # (auto) 0.3 10 ^3/uL (0-0.8); Eosinophils % (auto) 3.7 % (0.0-7.0); Hematocrit 35.8 % (36.0-46.0); Hemoglobin 11.9 g/dL (12.2-16.2); Lymphocytes % (auto) 37.9 % (10.0-50.0); Monocytes # (auto) 0.5 10 ^3/uL (0-1.3); Monocytes % (auto) 6.1 % (0.0-12.0); Neutrophils # (auto) 4.2 10 ^3/uL (1.6-8.6); Nucleated Red Blood Cells % 0.1 %; Red Blood Cells 4.11 10^6/uL (4.0-5.20)
[2023-04-24 07:24] LABS: Mean Corpuscular Hgb Conc. 33.3 g/dL (32.0-36.0); Mean Corpuscular Volume 86.9 fL (80.0-100.0)
[2023-04-24 07:34] LABS: Alanine Aminotransferase 12 U/L (7-40); Albumin 3.9 g/dL (3.2-4.8); Alkaline Phosphatase 111 U/L (46-116); Anion Gap 5 (5-15); Aspartate Aminotransferase 12 U/L (13-40); BUN/Creatinine Ratio 17.1 (10.0-20.0); Blood Urea Nitrogen 14 mg/dL (9-23); Calcium 8.9 mg/dL (8.5-10.1); Carbon Dioxide 28 mmol/L (20-30); Chloride 105 mmol/L (98-107); Glucose 115 mg/dL (74-106); Potassium 4.6 mmol/L (3.5-5.1); Sodium 138 mmol/L (136-145)
[2023-04-24 07:35] LABS: Bilirubin, Total 0.3 mg/dL (0.2-1.0); Total Protein 6.7 g/dL (5.7-8.2)
[2023-04-24 08:11] VITALS: PULSE 72; RESP 18; O2SAT 98
[2023-04-24] MEDS ORDERED: PANTOPRAZOLE 40 MG/10 ML VIAL INJ IV SCH (10:00)
[2023-04-24] MEDS ORDERED: HYDROcodone-ACET 5/325MG TAB PO ONE (11:30)
[2023-04-24 11:36] LABS: Triglycerides 95 mg/dL (< 150)
[2023-04-24 11:37] LABS: LDL Cholesterol 75 mg/dL (< 100)
[2023-04-24 11:38] LABS: Cholesterol 139 mg/dL (< 200); HDL Cholesterol 53 mg/dL (40-59)
[2023-04-24] MEDS ORDERED: VANCOMYCIN PER PHARMACY 0 MG IV SCH (12:15)
[2023-04-24] MEDS: VANCOMYCIN 1GM/250ML 250 ML IV SCH ×2 (13:00→20:32)
[2023-04-24 17:05] VITALS: PULSE 68; RESP 18; O2SAT 99
[2023-04-24 17:06] VITALS: BP 127/82; PULSE 68; RESP 18; TEMP 98.3
[2023-04-24 17:19] VITALS: BP 127/82; PULSE 68; RESP 20; TEMP 98.3; O2SAT 100
[2023-04-24] MEDS: ATORVASTATIN 20 MG TAB PO SCH (21:30)
[2023-04-24 22:00] VITALS: BP 105/67; PULSE 89; RESP 22; TEMP 97.9; O2SAT 99
[2023-04-25] VITALS (8 sets, daily range): BP systolic 105–129; BP diastolic 70–80; PULSE 12–89; RESP 12–72; TEMP 97.7–98.6; O2SAT 96–100
[2023-04-25] MEDS: VANCOMYCIN 1GM/250ML 250 ML IV SCH ×2 (04:17→13:00)
[2023-04-25] MEDS: ACCU-CHEK COMFORT CURVE STRIP VI SCH ×4 (05:38→22:35)
[2023-04-25] MEDS: CEFEPIME 1GM/ 50ML 50 ML IV SCH ×3 (05:38→22:36)
[2023-04-25] MEDS: InsuLIN REG 1unit/0.01ml Soln (100units/ml) SC SCH ×4 (06:52→22:34)
[2023-04-25 07:03] LABS: Amphetamine Screen, Urine Pos (NEGATIVE); Barbiturate Scree,Urine Neg (NEGATIVE); Benzodiazephine Screen, Urine Neg (NEGATIVE); Cocaine Screen, Urine Neg (NEGATIVE); Opiate Scree,Urine Neg (NEGATIVE); Phencyclidine Screen, Urine Neg (NEGATIVE)
[2023-04-25 07:04] LABS: Cannabinoid Screen, Urine Pos (NEGATIVE)
[2023-04-25 07:07] LABS: Urine Bacteria NONE SEEN /hpf (None Seen); Urine Blood TRACE /uL (Negative); Urine Clarity Clear (Clear); Urine Protein, UAD Negative (Negative); Urine Specific Gravity 1.012 (1.001-1.035); Urine Urobilinogen Normal (Negative); Urine WBC 1 /hpf (0 - 5); Urine pH 5.5 (5.0-8.0)
[2023-04-25 07:08] LABS: Urine Color Straw (Yellow)
[2023-04-25 07:40] LABS: Basophils # (auto) 0 10 ^3/uL (0-0.2); Basophils % (auto) 0.4 % (0.0-2.0); Eosinophils # (auto) 0.2 10 ^3/uL (0-0.8); Eosinophils % (auto) 3.6 % (0.0-7.0); Hematocrit 37.8 % (36.0-46.0); Hemoglobin 12.6 g/dL (12.2-16.2); Lymphocytes # (auto) 2.1 10 ^3/uL (0.4-5.4); Lymphocytes % (auto) 33.1 % (10.0-50.0); Mean Corpuscular Hemoglobin 29.1 pg (28.0-32.0); Mean Corpuscular Hgb Conc. 33.5 g/dL (32.0-36.0); Monocytes # (auto) 0.4 10 ^3/uL (0-1.3); Neutrophils # (auto) 3.7 10 ^3/uL (1.6-8.6); Neutrophils % (auto) 56.9 % (37.0-80.0); Red Blood Cells 4.34 10^6/uL (4.0-5.20); Red Cell Distribution Width 15.1 % (11.8-14.3); White Blood Cell 6.5 10^3/uL (4.4-10.8)
[2023-04-25 07:47] LABS: Anion Gap 6 (5-15); Carbon Dioxide 26 mmol/L (20-30); Chloride 104 mmol/L (98-107); Potassium 4.2 mmol/L (3.5-5.1); Sodium 136 mmol/L (136-145)
[2023-04-25 07:48] LABS: Calcium 8.7 mg/dL (8.5-10.1)
[2023-04-25 07:53] LABS: BUN/Creatinine Ratio 15.4 (10.0-20.0); Blood Urea Nitrogen 10 mg/dL (9-23); Glucose 162 mg/dL (74-106)
[2023-04-25] MEDS ORDERED: ROPIVACAINE 0.5% (5MG/ML) 20ML AMPULE IJ ONE (08:36)
[2023-04-25] MEDS ORDERED: BACITRACIN TOP OINT 1 UD PKG TOP ONE (08:36)
[2023-04-25] MEDS ORDERED: ceFAZolin 1GM VL ONE (08:36)
[2023-04-25] MEDS ORDERED: DexAMETHasone SOD PHOS 10MG/1ML VIAL INJ ONE (10:19)
[2023-04-25] MEDS ORDERED: LIDOCAINE 2% (LOCAL ANESTH.) PF 5ml SDV ONE (10:19)
[2023-04-25] MEDS ORDERED: PROPOFOL 10 MG/ML 20 ML IV ONE ×3 (10:19→12:13)
[2023-04-25] MEDS ORDERED: GLYCOPYRROLATE 0.2 MG/ML 1ML VIAL ONE (10:19)
[2023-04-25] MEDS ORDERED: ONDANSETRON HCL 4 MG/2 ML VIAL ONE (10:19)
[2023-04-25] MEDS ORDERED: KETOROLAC TROMETH 30 MG/ML 1ML VIAL ONE (10:19)
[2023-04-25] MEDS ORDERED: fentaNYL CITRATE 100 MCG/2 ML VL ONE (10:20)
[2023-04-25] MEDS ORDERED: ceFAZolin 2 GM/D5W100ml 100 ML IV ONE (11:16)
[2023-04-25] MEDS ORDERED: LIDOCAINE 1% (LOCAL ANESTH.) PF 5ml SDV ID ONE (16:30)
[2023-04-25] MEDS ORDERED: VANCOMYCIN 1GM/250ML 250 ML IV SCH (17:00)
[2023-04-25] MEDS: HYDROcodone-ACET 5/325MG TAB PO PRN (18:10)
[2023-04-25] MEDS: ATORVASTATIN 20 MG TAB PO SCH (22:36)
[2023-04-25] MEDS: SODIUM CHLOR 0.9% PF (SALINE LOCK) 10ML VIAL/SYR IV SCH (22:36)
[2023-04-26] MEDS: VANCOMYCIN 1GM/250ML 250 ML IV SCH ×2 (00:08→08:27)
[2023-04-26 05:00] VITALS: BP 104/65; PULSE 76; RESP 20; TEMP 97.9; O2SAT 96
[2023-04-26] MEDS: CEFEPIME 1GM/ 50ML 50 ML IV SCH (05:39)
[2023-04-26] MEDS: InsuLIN REG 1unit/0.01ml Soln (100units/ml) SC SCH ×2 (06:43→12:12)
[2023-04-26] MEDS: ACCU-CHEK COMFORT CURVE STRIP VI SCH ×2 (06:44→12:09)
[2023-04-26 07:13] LABS: Basophils # (auto) 0 10 ^3/uL (0-0.2); Basophils % (auto) 0.1 % (0.0-2.0); Eosinophils # (auto) 0 10 ^3/uL (0-0.8); Hematocrit 36.1 % (36.0-46.0); Hemoglobin 12.3 g/dL (12.2-16.2); Lymphocytes # (auto) 1.4 10 ^3/uL (0.4-5.4); Mean Corpuscular Hgb Conc. 34.1 g/dL (32.0-36.0); Monocytes # (auto) 0.8 10 ^3/uL (0-1.3); Monocytes % (auto) 4.4 % (0.0-12.0); Neutrophils % (auto) 88.5 % (37.0-80.0); Red Blood Cells 4.25 10^6/uL (4.0-5.20); Red Cell Distribution Width 14.4 % (11.8-14.3); White Blood Cell 19.2 10^3/uL (4.4-10.8)
[2023-04-26 07:20] LABS: Anion Gap 6 (5-15); Carbon Dioxide 26 mmol/L (20-30); Chloride 103 mmol/L (98-107); Potassium 4.4 mmol/L (3.5-5.1); Sodium 135 mmol/L (136-145)
[2023-04-26 07:21] LABS: Calcium 9.1 mg/dL (8.5-10.1)
[2023-04-26 07:26] LABS: BUN/Creatinine Ratio 18.3 (10.0-20.0); Blood Urea Nitrogen 13 mg/dL (9-23); Glucose 179 mg/dL (74-106)
[2023-04-26 08:00] VITALS: PULSE 91; RESP 16; O2SAT 98
[2023-04-26 09:00] VITALS: BP 141/78; PULSE 91; RESP 16; TEMP 97.7; O2SAT 98
[2023-04-26] MEDS: SODIUM CHLOR 0.9% PF (SALINE LOCK) 10ML VIAL/SYR IV SCH (10:00)
[2023-04-26 13:00] VITALS: BP 138/91; PULSE 88; RESP 16; TEMP 98.8; O2SAT 95
[2023-04-26 13:34] VITALS: TEMP 36.5
== END 2023-04-26 15:43 | disposition home health service (06) | DRG 314 ==
LOC: ER 15:14 → WEST WING 17:12 → OVERFLOW 17:22 → WEST WING 04-24 15:42
PROVIDERS: ADMIT Internal Medicine
PROC: 02HV33Z Insertion of Infusion Device into Superior Vena Cava, Percutaneous Approach (ICD-10-PCS; 2023-04-25)
PROC: B548ZZA Ultrasonography of Superior Vena Cava, Guidance (ICD-10-PCS; 2023-04-25)
PROC: 0Y6U0Z3 Detachment at Left 3rd Toe, Low, Open Approach (ICD-10-PCS; principal; 2023-04-25 11:35)
DX: E11.69 Type 2 diabetes mellitus with other specified complication (principal); I96 Gangrene, not elsewhere classified; M86.8X7 Other osteomyelitis, ankle and foot; L97.529 Non-pressure chronic ulcer of other part of left foot with unspecified severity; L03.032 Cellulitis of left toe; E66.9 Obesity, unspecified; E78.5 Hyperlipidemia, unspecified; S91.109A Unspecified open wound of unspecified toe(s) without damage to nail, initial encounter; X58.XXXA Exposure to other specified factors, initial encounter; I10 Essential (primary) hypertension; Z87.891 Personal history of nicotine dependence; Z83.3 Family history of diabetes mellitus; Z89.429 Acquired absence of other toe(s), unspecified side; Z79.4 Long term (current) use of insulin; Y93.89 Activity, other specified; Y92.89 Other specified places as the place of occurrence of the external cause; Y99.8 Other external cause status
CPT/HCPCS: 36415; 36569; 71045; 73700; 73718; 80048; 80053; 80061; 80202; 80307; 81001; 82962; 83036; 84702; 85025; 85610; 86850; 86900; 86901; 87040; 87070; 87075; 87076; 87077; 87186; 87205; C9113; G0378; J0690; J1100; J1815; J1885; J2001; J2405; J2704

== ENCOUNTER 2023-05-14 23:14 | Inpatient (IN) | payer MEDICAID ==
[~2023-05-14] VITALS: Ht 167.6 cm; Wt 92.6 kg
[~2023-05-14 23:14] MED LIST changes: -AUG875T PO
[2023-05-15 00:23] LABS: INR 0.97 (0.9-1.15); Prothrombin Time 10.2 sec (9.3-11.8)
[2023-05-15 00:30] LABS: Alanine Aminotransferase 20 U/L (7-40); Albumin 4.3 g/dL (3.2-4.8); Alkaline Phosphatase 123 U/L (46-116); Anion Gap 9 (5-15); Aspartate Aminotransferase 22 U/L (13-40); BUN/Creatinine Ratio 17.2 (10.0-20.0); Bilirubin, Total 0.3 mg/dL (0.2-1.0); Blood Urea Nitrogen 15 mg/dL (9-23); Calcium 9.3 mg/dL (8.5-10.1); Carbon Dioxide 24 mmol/L (20-30); Chloride 106 mmol/L (98-107); Glucose 130 mg/dL (74-106); Potassium 3.9 mmol/L (3.5-5.1); Sodium 139 mmol/L (136-145); Total Protein 7.2 g/dL (5.7-8.2)
[2023-05-15 00:45] LABS: Basophils # (auto) 0.1 10 ^3/uL (0-0.2); Basophils % (auto) 0.6 % (0.0-2.0); Eosinophils # (auto) 0.2 10 ^3/uL (0-0.8); Eosinophils % (auto) 1.6 % (0.0-7.0); Hemoglobin 12.8 g/dL (12.2-16.2); Lymphocytes # (auto) 2.6 10 ^3/uL (0.4-5.4); Lymphocytes % (auto) 23.3 % (10.0-50.0); Mean Corpuscular Hemoglobin 29.2 pg (28.0-32.0); Mean Corpuscular Hgb Conc. 33.7 g/dL (32.0-36.0); Mean Corpuscular Volume 86.7 fL (80.0-100.0); Monocytes # (auto) 0.7 10 ^3/uL (0-1.3); Monocytes % (auto) 6.7 % (0.0-12.0); Neutrophils # (auto) 7.6 10 ^3/uL (1.6-8.6); Neutrophils % (auto) 67.8 % (37.0-80.0); Red Blood Cells 4.38 10^6/uL (4.0-5.20); Red Cell Distribution Width 15.4 % (11.8-14.3); White Blood Cell 11.2 10^3/uL (4.4-10.8)
[2023-05-15] MEDS ORDERED: DEXTROSE (50%) 50ML SYRG IV PRN (06:15)
[2023-05-15] MEDS ORDERED: CLINDAMYCIN 600MG IV 50 ML IV SCH (06:15)
[2023-05-15] MEDS ORDERED: ONDANSETRON HCL 4 MG/2 ML VIAL IV PRN ×2 (06:15→10:00)
[2023-05-15 08:20] VITALS: PULSE 74; RESP 14; O2SAT 98
[2023-05-15] MEDS ORDERED: BACITRACIN TOP OINT 1 UD PKG TOP ONE (09:39)
[2023-05-15] MEDS ORDERED: ROPIVACAINE 0.5% (5MG/ML) 20ML AMPULE IJ ONE (09:40)
[2023-05-15] MEDS ORDERED: ceFAZolin 1GM VL ONE (09:46)
[2023-05-15] MEDS ORDERED: MIDAZOLAM HCL 2MG/2ML 2ml VIAL (1mg/ml) ONE (09:48)
[2023-05-15] MEDS ORDERED: MEPERIDINE HCL (25 MG/ML) 1ML VIAL ONE (09:48)
[2023-05-15] MEDS ORDERED: fentaNYL CITRATE 100 MCG/2 ML VL ONE (09:48)
[2023-05-15] MEDS ORDERED: DexAMETHasone SOD PHOS 10MG/1ML VIAL INJ ONE (09:56)
[2023-05-15] MEDS ORDERED: LABETALOL HCL 5 MG/ML 4ML SYRINGE IV PRN (10:00)
[2023-05-15] MEDS ORDERED: ePHEDrine SULFATE 50 MG/ML AMP IV PRN (10:00)
[2023-05-15] MEDS ORDERED: HYDROmorphone HCL 2 MG/ML VL/or syr IV PRN (10:00)
[2023-05-15] MEDS ORDERED: MORPHINE SULFATE 4 MG/ML SYR/VIAL IV PRN (10:00)
[2023-05-15] MEDS ORDERED: MIDAZOLAM HCL 2MG/2ML 2ml VIAL (1mg/ml) IV PRN (10:00)
[2023-05-15] MEDS ORDERED: PROPOFOL 10 MG/ML 20 ML IV ONE (10:08)
[2023-05-15 10:30] VITALS: PULSE 54; RESP 13; O2SAT 100
[2023-05-15] MEDS ORDERED: VANCOMYCIN PER PHARMACY 0 MG IV SCH (11:15)
[2023-05-15] MEDS ORDERED: VANCOMYCIN 1GM/250ML 250 ML IV ONE (12:30)
[2023-05-15 14:20] VITALS: BP 116/69; PULSE 81; RESP 18; TEMP 98.4; O2SAT 97
[2023-05-15] MEDS: ACCU-CHEK COMFORT CURVE STRIP VI SCH ×2 (14:30→18:10)
[2023-05-15] MEDS: InsuLIN REG 1unit/0.01ml Soln (100units/ml) SC SCH ×2 (14:30→18:10)
[2023-05-15] MEDS: MORPHINE SULFATE INJ 2 MG/ml SYRG IV PRN ×2 (15:17→21:51)
[2023-05-15 17:00] VITALS: BP 129/73; PULSE 71; RESP 18; TEMP 98.8; O2SAT 99
[2023-05-15 20:00] VITALS: BP 104/61; PULSE 18; RESP 18; TEMP 98.2; O2SAT 97
[2023-05-15] MEDS: VANCOMYCIN 1GM/250ML 250 ML IV SCH (21:31)
[2023-05-15 22:00] VITALS: BP 104/61; PULSE 79; RESP 18; TEMP 97.9; O2SAT 93
[2023-05-16] MEDS: InsuLIN REG 1unit/0.01ml Soln (100units/ml) SC SCH ×4 (00:41→17:39)
[2023-05-16 05:00] VITALS: BP 108/65; PULSE 71; RESP 18; TEMP 98.5; O2SAT 100
[2023-05-16] MEDS: VANCOMYCIN 1GM/250ML 250 ML IV SCH ×3 (05:00→20:12)
[2023-05-16 05:09] LABS: Basophils # (auto) 0 10 ^3/uL (0-0.2); Basophils % (auto) 0.1 % (0.0-2.0); Eosinophils # (auto) 0 10 ^3/uL (0-0.8); Hematocrit 36.8 % (36.0-46.0); Hemoglobin 12.4 g/dL (12.2-16.2); Lymphocytes # (auto) 1.9 10 ^3/uL (0.4-5.4); Lymphocytes % (auto) 10.9 % (10.0-50.0); Mean Corpuscular Hemoglobin 29.1 pg (28.0-32.0); Mean Corpuscular Hgb Conc. 33.8 g/dL (32.0-36.0); Monocytes % (auto) 6.1 % (0.0-12.0); Neutrophils # (auto) 14.1 10 ^3/uL (1.6-8.6); Neutrophils % (auto) 82.9 % (37.0-80.0); Red Blood Cells 4.27 10^6/uL (4.0-5.20); Red Cell Distribution Width 15.2 % (11.8-14.3); White Blood Cell 17.1 10^3/uL (4.4-10.8)
[2023-05-16 05:30] LABS: Alanine Aminotransferase 15 U/L (7-40); Albumin 3.9 g/dL (3.2-4.8); Alkaline Phosphatase 123 U/L (46-116); Anion Gap 7 (5-15); Aspartate Aminotransferase 16 U/L (13-40); BUN/Creatinine Ratio 23.8 (10.0-20.0); Bilirubin, Total 0.5 mg/dL (0.2-1.0); Blood Urea Nitrogen 15 mg/dL (9-23); Calcium 9.3 mg/dL (8.5-10.1); Carbon Dioxide 24 mmol/L (20-30); Chloride 104 mmol/L (98-107); Glucose 122 mg/dL (74-106); Sodium 135 mmol/L (136-145); Total Protein 6.6 g/dL (5.7-8.2)
[2023-05-16 09:00] VITALS: BP 118/71; PULSE 76; RESP 17; TEMP 98.4; O2SAT 95
[2023-05-16] MEDS: levoFLOXacin 500MG 100 ML IV SCH (09:08)
[2023-05-16] MEDS: MORPHINE SULFATE INJ 2 MG/ml SYRG IV PRN ×2 (09:10→22:58)
[2023-05-16] MEDS: SODIUM CHLORIDE 0.9% 1,000 ML IV SCH ×2 (10:30→17:46)
[2023-05-16] MEDS ORDERED: OXYCODONE W/ ACETAMINOPHEN 5/325MG TABLET PO PRN (10:45)
[2023-05-16] MEDS: ACCU-CHEK COMFORT CURVE STRIP VI SCH ×4 (11:56→17:40)
[2023-05-16 13:00] VITALS: BP 111/69; PULSE 74; RESP 17; TEMP 98; O2SAT 100
[2023-05-16 17:00] VITALS: BP_SYST 108; BP_SYST 116; BP_DIAS 58; BP_DIAS 71; PULSE 78; PULSE 89; RESP 17; RESP 18; TEMP 98.4; TEMP 98.5; O2SAT 94; O2SAT 99
[2023-05-16] MEDS: DOCUSATE SOD 100 MG CAP PO SCH (20:13)
[2023-05-16 21:57] VITALS: BP 120/67; PULSE 76; RESP 16; TEMP 98.3; O2SAT 96
[2023-05-17] MEDS: ACCU-CHEK COMFORT CURVE STRIP VI SCH ×5 (00:24→23:42)
[2023-05-17] MEDS: VANCOMYCIN 1GM/250ML 250 ML IV SCH ×3 (02:05→17:19)
[2023-05-17 05:00] VITALS: BP 115/72; PULSE 67; RESP 16; TEMP 98.3; O2SAT 98
[2023-05-17] MEDS: InsuLIN REG 1unit/0.01ml Soln (100units/ml) SC SCH ×5 (06:00→23:55)
[2023-05-17 08:00] VITALS: BP 118/73; PULSE 67; RESP 18; TEMP 98; O2SAT 99
[2023-05-17] MEDS: DOCUSATE SOD 100 MG CAP PO SCH ×2 (08:30→23:41)
[2023-05-17] MEDS: levoFLOXacin 500MG 100 ML IV SCH (08:30)
[2023-05-17] MEDS: MORPHINE SULFATE INJ 2 MG/ml SYRG IV PRN ×2 (08:40→17:19)
[2023-05-17 08:46] LABS: Basophils # (auto) 0 10 ^3/uL (0-0.2); Basophils % (auto) 0.4 % (0.0-2.0); Eosinophils # (auto) 0.1 10 ^3/uL (0-0.8); Eosinophils % (auto) 1.5 % (0.0-7.0); Hematocrit 40.2 % (36.0-46.0); Hemoglobin 13.3 g/dL (12.2-16.2); Lymphocytes # (auto) 2.8 10 ^3/uL (0.4-5.4); Lymphocytes % (auto) 35.6 % (10.0-50.0); Mean Corpuscular Hemoglobin 28.7 pg (28.0-32.0); Mean Corpuscular Hgb Conc. 33.2 g/dL (32.0-36.0); Mean Corpuscular Volume 86.7 fL (80.0-100.0); Monocytes # (auto) 0.6 10 ^3/uL (0-1.3); Monocytes % (auto) 7.7 % (0.0-12.0); Neutrophils # (auto) 4.3 10 ^3/uL (1.6-8.6); Neutrophils % (auto) 54.8 % (37.0-80.0); Nucleated Red Blood Cells % 0.1 %; Red Blood Cells 4.64 10^6/uL (4.0-5.20); Red Cell Distribution Width 15.8 % (11.8-14.3); White Blood Cell 7.8 10^3/uL (4.4-10.8)
[2023-05-17 08:52] LABS: Anion Gap 6 (5-15); Carbon Dioxide 23 mmol/L (20-30); Chloride 108 mmol/L (98-107); Potassium 4.1 mmol/L (3.5-5.1); Sodium 137 mmol/L (136-145)
[2023-05-17 08:58] LABS: BUN/Creatinine Ratio 17.4 (10.0-20.0); Blood Urea Nitrogen 12 mg/dL (9-23); Glucose 90 mg/dL (74-106)
[2023-05-17 12:00] VITALS: BP 117/71; PULSE 65; RESP 18; TEMP 98; O2SAT 94
[2023-05-17] MEDS: SODIUM CHLORIDE 0.9% 1,000 ML IV SCH (13:10)
[2023-05-17 16:00] VITALS: BP 100/71; PULSE 80; RESP 18; TEMP 98.3; O2SAT 95
[2023-05-17 21:57] VITALS: BP 117/72; PULSE 67; RESP 16; TEMP 98.3; O2SAT 99
[2023-05-18] MEDS: VANCOMYCIN 1GM/250ML 250 ML IV SCH ×3 (02:12→17:33)
[2023-05-18] MEDS: SODIUM CHLORIDE 0.9% 1,000 ML IV SCH ×2 (03:09→15:50)
[2023-05-18 05:00] VITALS: BP 113/67; PULSE 74; RESP 16; TEMP 98.4; O2SAT 100
[2023-05-18] MEDS: InsuLIN REG 1unit/0.01ml Soln (100units/ml) SC SCH ×4 (05:36→23:18)
[2023-05-18] MEDS: ACCU-CHEK COMFORT CURVE STRIP VI SCH ×4 (05:36→23:19)
[2023-05-18 07:57] VITALS: BP 129/74; PULSE 70; RESP 16; TEMP 98.4; O2SAT 100
[2023-05-18 08:00] VITALS: O2SAT 98
[2023-05-18] MEDS: levoFLOXacin 500MG 100 ML IV SCH (08:31)
[2023-05-18] MEDS: MORPHINE SULFATE INJ 2 MG/ml SYRG IV PRN ×2 (08:32→17:34)
[2023-05-18] MEDS: DOCUSATE SOD 100 MG CAP PO SCH ×2 (08:32→22:56)
[2023-05-18 12:53] VITALS: BP 122/68; PULSE 86; RESP 16; TEMP 98.4; O2SAT 97
[2023-05-18 20:00] VITALS: PULSE 88; RESP 19; O2SAT 99
[2023-05-18 22:00] VITALS: BP 120/92; PULSE 88; RESP 19; TEMP 97.6; O2SAT 99
[2023-05-19] VITALS (7 sets, daily range): BP systolic 108–133; BP diastolic 57–78; PULSE 65–86; RESP 17–20; TEMP 97.8–98.3; O2SAT 95–99
[2023-05-19] MEDS: VANCOMYCIN 1GM/250ML 250 ML IV SCH ×3 (02:06→18:01)
[2023-05-19] MEDS: SODIUM CHLORIDE 0.9% 1,000 ML IV SCH ×2 (02:06→23:12)
[2023-05-19] MEDS: ACCU-CHEK COMFORT CURVE STRIP VI SCH ×4 (05:50→23:13)
[2023-05-19] MEDS: InsuLIN REG 1unit/0.01ml Soln (100units/ml) SC SCH ×4 (05:52→23:18)
[2023-05-19] MEDS: levoFLOXacin 500MG 100 ML IV SCH (09:52)
[2023-05-19] MEDS: DOCUSATE SOD 100 MG CAP PO SCH ×2 (09:52→21:26)
[2023-05-19] MEDS: MORPHINE SULFATE INJ 2 MG/ml SYRG IV PRN ×2 (13:26→20:45)
[2023-05-19] MEDS: Juven Orange Powder PACKET 27.5gm PO SCH (21:20)
[2023-05-20] MEDS: VANCOMYCIN 1GM/250ML 250 ML IV SCH ×3 (02:24→17:47)
[2023-05-20 05:00] VITALS: BP 99/63; PULSE 75; RESP 20; TEMP 98.3; O2SAT 98
[2023-05-20] MEDS: InsuLIN REG 1unit/0.01ml Soln (100units/ml) SC SCH ×3 (05:29→17:54)
[2023-05-20] MEDS: ACCU-CHEK COMFORT CURVE STRIP VI SCH ×3 (05:29→17:46)
[2023-05-20 09:00] VITALS: BP 102/66; PULSE 72; RESP 18; TEMP 98; O2SAT 99
[2023-05-20] MEDS: MORPHINE SULFATE INJ 2 MG/ml SYRG IV PRN ×2 (09:37→17:49)
[2023-05-20] MEDS: levoFLOXacin 500MG 100 ML IV SCH (09:37)
[2023-05-20] MEDS: DOCUSATE SOD 100 MG CAP PO SCH ×2 (09:38→22:53)
[2023-05-20] MEDS: Juven Orange Powder PACKET 27.5gm PO SCH ×2 (09:41→17:54)
[2023-05-20] MEDS: SODIUM CHLORIDE 0.9% 1,000 ML IV SCH ×2 (09:42→21:10)
[2023-05-20 13:00] VITALS: BP 119/71; PULSE 87; RESP 17; TEMP 98.4; O2SAT 98
[2023-05-20] MEDS ORDERED: CLINDAMYCIN 600MG IV 50 ML IV ONE (14:15)
[2023-05-20 17:00] VITALS: BP 97/59; PULSE 80; RESP 17; TEMP 98.3; O2SAT 98
[2023-05-20 22:00] VITALS: BP 105/69; PULSE 87; RESP 18; TEMP 98; O2SAT 96
[2023-05-21] MEDS: ACCU-CHEK COMFORT CURVE STRIP VI SCH ×3 (00:12→11:14)
[2023-05-21] MEDS: MORPHINE SULFATE INJ 2 MG/ml SYRG IV PRN ×2 (00:30→08:51)
[2023-05-21] MEDS: VANCOMYCIN 1GM/250ML 250 ML IV SCH ×3 (01:43→11:41)
[2023-05-21 05:33] VITALS: BP 102/55; PULSE 74; RESP 18; TEMP 98.3; O2SAT 97
[2023-05-21] MEDS: InsuLIN REG 1unit/0.01ml Soln (100units/ml) SC SCH ×3 (05:58→11:15)
[2023-05-21 08:31] VITALS: BP 97/64; PULSE 70; RESP 21; TEMP 98; O2SAT 99
[2023-05-21] MEDS: DOCUSATE SOD 100 MG CAP PO SCH (08:50)
[2023-05-21] MEDS: levoFLOXacin 500MG 100 ML IV SCH (08:50)
[2023-05-21] MEDS: Juven Orange Powder PACKET 27.5gm PO SCH (08:54)
[2023-05-21 10:50] LABS: Anion Gap 5 (5-15); Basophils # (auto) 0 10 ^3/uL (0-0.2); Basophils % (auto) 0.4 % (0.0-2.0); Carbon Dioxide 28 mmol/L (20-30); Chloride 101 mmol/L (98-107); Eosinophils # (auto) 0.2 10 ^3/uL (0-0.8); Hematocrit 40.2 % (36.0-46.0); Hemoglobin 13.5 g/dL (12.2-16.2); Lymphocytes # (auto) 2.1 10 ^3/uL (0.4-5.4); Lymphocytes % (auto) 25.9 % (10.0-50.0); Mean Corpuscular Hemoglobin 28.7 pg (28.0-32.0); Mean Corpuscular Hgb Conc. 33.6 g/dL (32.0-36.0); Mean Corpuscular Volume 85.4 fL (80.0-100.0); Monocytes # (auto) 0.5 10 ^3/uL (0-1.3); Monocytes % (auto) 6.5 % (0.0-12.0); Neutrophils # (auto) 5.3 10 ^3/uL (1.6-8.6); Neutrophils % (auto) 64.2 % (37.0-80.0); Nucleated Red Blood Cells % 0.1 %; Potassium 4.4 mmol/L (3.5-5.1); Red Blood Cells 4.71 10^6/uL (4.0-5.20); Red Cell Distribution Width 15.1 % (11.8-14.3); Sodium 134 mmol/L (136-145); White Blood Cell 8.2 10^3/uL (4.4-10.8)
[2023-05-21 10:51] LABS: Calcium 8.6 mg/dL (8.7-10.4)
[2023-05-21 10:55] LABS: Glucose 189 mg/dL (74-106)
[2023-05-21 10:56] LABS: BUN/Creatinine Ratio 25.7 (10.0-20.0); Blood Urea Nitrogen 18 mg/dL (9-23)
[2023-05-21] MEDS: SODIUM CHLORIDE 0.9% 1,000 ML IV SCH (11:13)
[2023-05-21 12:24] VITALS: BP 99/53; PULSE 70; RESP 19; TEMP 97.8; O2SAT 98
== END 2023-05-21 15:04 | disposition home or self-care (01) | DRG 794 ==
LOC: ER 23:14 → OVERFLOW 05-15 06:02 → EAST 05-15 06:07
PROVIDERS: ADMIT Nurse Practitioner; ATTEND Nurse Practitioner Acute Care
PROC: 0QBN0ZZ Excision of Right Metatarsal, Open Approach (ICD-10-PCS; 2023-05-15)
PROC: 0QBN0ZZ Excision of Right Metatarsal, Open Approach (ICD-10-PCS; principal; 2023-05-15 09:49)
DX: T81.30XA Disruption of wound, unspecified, initial encounter (principal); E11.621 Type 2 diabetes mellitus with foot ulcer; L97.518 Non-pressure chronic ulcer of other part of right foot with other specified severity; M86.8X7 Other osteomyelitis, ankle and foot; E11.69 Type 2 diabetes mellitus with other specified complication; L03.031 Cellulitis of right toe; E66.9 Obesity, unspecified; L97.519 Non-pressure chronic ulcer of other part of right foot with unspecified severity; E78.5 Hyperlipidemia, unspecified; W18.39XA Other fall on same level, initial encounter; F19.90 Other psychoactive substance use, unspecified, uncomplicated; Y83.8 Other surgical procedures as the cause of abnormal reaction of the patient, or of later complication, without mention of misadventure at the time of the procedure; I10 Essential (primary) hypertension; Z87.891 Personal history of nicotine dependence; Z91.199 Patient's noncompliance with other medical treatment and regimen due to unspecified reason; Z83.3 Family history of diabetes mellitus; Y93.89 Activity, other specified; Y92.89 Other specified places as the place of occurrence of the external cause; Y99.8 Other external cause status; Z68.33 Body mass index [BMI] 33.0-33.9, adult
CPT/HCPCS: 36415; 71045; 73700; 80048; 80053; 80202; 82565; 82962; 84702; 85025; 85610; 86850; 86900; 86901; 87070; 87075; 87081; 87205; 93925; 96365; 96366; G0378; J0690; J1100; J1815; J1956; J2250; J2405; J2704; J3490

== ENCOUNTER 2023-06-12 00:03 | Inpatient (IN) | payer MEDICAID ==
[~2023-06-12] VITALS: Ht 167.6 cm; Wt 115.9 kg
[2023-06-12 01:03] LABS: Basophils # (auto) 0.1 10 ^3/uL (0-0.2); Basophils % (auto) 0.5 % (0.0-2.0); Eosinophils # (auto) 0.2 10 ^3/uL (0-0.8); Eosinophils % (auto) 2.1 % (0.0-7.0); Hematocrit 38.6 % (36.0-46.0); Hemoglobin 12.9 g/dL (12.2-16.2); Lymphocytes # (auto) 2.9 10 ^3/uL (0.4-5.4); Lymphocytes % (auto) 30.2 % (10.0-50.0); Mean Corpuscular Hemoglobin 28.9 pg (28.0-32.0); Mean Corpuscular Hgb Conc. 33.4 g/dL (32.0-36.0); Mean Corpuscular Volume 86.6 fL (80.0-100.0); Monocytes # (auto) 0.6 10 ^3/uL (0-1.3); Monocytes % (auto) 6.1 % (0.0-12.0); Neutrophils # (auto) 5.8 10 ^3/uL (1.6-8.6); Neutrophils % (auto) 61.1 % (37.0-80.0); Red Blood Cells 4.45 10^6/uL (4.0-5.20); Red Cell Distribution Width 15.7 % (11.8-14.3); White Blood Cell 9.5 10^3/uL (4.4-10.8)
[2023-06-12 01:14] LABS: INR 1.01 (0.9-1.15); Partial Thromboplastin Time 28.8 SEC (24.5-34.5); Prothrombin Time 10.6 sec (9.3-11.8)
[2023-06-12 01:18] LABS: Alanine Aminotransferase 22 U/L (7-40); Albumin 4.2 g/dL (3.2-4.8); Alkaline Phosphatase 134 U/L (46-116); Anion Gap 6 (5-15); Aspartate Aminotransferase 14 U/L (13-40); BUN/Creatinine Ratio 16.9 (10.0-20.0); Bilirubin, Total 0.3 mg/dL (0.2-1.0); Blood Urea Nitrogen 14 mg/dL (9-23); Calcium 8.7 mg/dL (8.7-10.4); Carbon Dioxide 24 mmol/L (20-30); Chloride 105 mmol/L (98-107); Glucose 206 mg/dL (74-106); Potassium 3.7 mmol/L (3.5-5.1); Sodium 135 mmol/L (136-145)
[2023-06-12] MEDS ORDERED: SODIUM CHLORIDE 0.9% 1,000 ML IV ONE (02:45)
[2023-06-12] MEDS ORDERED: MORPHINE SULFATE 4 MG/ML SYR/VIAL IV ONE (02:45)
[2023-06-12] MEDS ORDERED: ONDANSETRON HCL 4 MG/2 ML VIAL IV ONE (02:45)
[2023-06-12] MEDS ORDERED: CEFEPIME 1GM/ 50ML 50 ML IV ONE (07:00)
[2023-06-12] MEDS ORDERED: ONDANSETRON HCL 4 MG/2 ML VIAL IV PRN ×2 (07:00→16:00)
[2023-06-12] MEDS: SODIUM CHLORIDE 0.9% 1,000 ML IV SCH ×2 (07:00→20:20)
[2023-06-12] MEDS ORDERED: ceFAZolin 2 GM/D5W100ml 100 ML IV ONE (08:53)
[2023-06-12 08:59] VITALS: PULSE 85; RESP 20; O2SAT 97
[2023-06-12] MEDS ORDERED: PROPOFOL 10 MG/ML 20 ML IV ONE (09:13)
[2023-06-12] MEDS ORDERED: fentaNYL CITRATE 100 MCG/2 ML VL ONE (09:13)
[2023-06-12] MEDS ORDERED: ONDANSETRON HCL 4 MG/2 ML VIAL ONE (09:13)
[2023-06-12] MEDS ORDERED: SODIUM CHLORIDE LOCK 10 ML ONE (09:13)
[2023-06-12] MEDS ORDERED: DexAMETHasone SOD PHOS 10MG/1ML VIAL INJ ONE (09:13)
[2023-06-12] MEDS ORDERED: MIDAZOLAM HCL 2MG/2ML 2ml VIAL (1mg/ml) ONE (09:13)
[2023-06-12] MEDS ORDERED: ROPIVACAINE 0.5% (5MG/ML) 20ML AMPULE IJ ONE (09:47)
[2023-06-12] MEDS ORDERED: NEOMYCIN-BACITRACIN-POLYM 15GM TOP OINT TOP ONE (09:47)
[2023-06-12] MEDS ORDERED: ceFAZolin 1GM VL ONE (09:47)
[2023-06-12] MEDS ORDERED: ACCU-CHEK COMFORT CURVE STRIP VI ONE (10:00)
[2023-06-12] MEDS ORDERED: MORPHINE SULFATE INJ 2 MG/ml SYRG IV PRN (10:00)
[2023-06-12] MEDS ORDERED: HYDROmorphone HCL 2 MG/ML VL/or syr IV PRN ×2 (10:00)
[2023-06-12] MEDS ORDERED: METOCLOPRAMIDE HCL 5MG/ml INJ 2ml VIAL IV PRN (10:00)
[2023-06-12 10:44] VITALS: O2SAT 100
[2023-06-12] MEDS: CLINDAMYCIN 600MG IV 50 ML IV SCH ×2 (14:34→22:20)
[2023-06-12 15:43] VITALS: PULSE 72; RESP 18
[2023-06-12 15:44] VITALS: BP 111/70; PULSE 71; RESP 16; TEMP 98.7; O2SAT 99
[2023-06-12] MEDS ORDERED: DEXTROSE (50%) 50ML SYRG IV PRN (16:00)
[2023-06-12] MEDS ORDERED: ACETAMINOPHEN 500 MG TAB PO PRN (16:00)
[2023-06-12] MEDS: ACCU-CHEK COMFORT CURVE STRIP VI SCH ×2 (16:20→22:23)
[2023-06-12] MEDS: InsuLIN REG 1unit/0.01ml Soln (100units/ml) SC SCH ×2 (17:55→22:00)
[2023-06-12 22:00] VITALS: BP 131/77; PULSE 68; RESP 14; TEMP 98; O2SAT 99
[2023-06-12] MEDS: MORPHINE SULFATE INJ 2 MG/ml SYRG IV PRN (22:20)
[2023-06-13 05:00] VITALS: BP 121/76; PULSE 63; RESP 16; TEMP 97.9; O2SAT 100
[2023-06-13] MEDS: SODIUM CHLORIDE 0.9% 1,000 ML IV SCH ×2 (06:20→22:51)
[2023-06-13] MEDS: CLINDAMYCIN 600MG IV 50 ML IV SCH ×3 (06:20→22:45)
[2023-06-13] MEDS: MORPHINE SULFATE INJ 2 MG/ml SYRG IV PRN ×2 (06:21→22:45)
[2023-06-13] MEDS: InsuLIN REG 1unit/0.01ml Soln (100units/ml) SC SCH ×4 (06:22→22:50)
[2023-06-13] MEDS: ACCU-CHEK COMFORT CURVE STRIP VI SCH ×4 (06:22→22:46)
[2023-06-13 06:48] LABS: Basophils # (auto) 0 10 ^3/uL (0-0.2); Basophils % (auto) 0.4 % (0.0-2.0); Eosinophils # (auto) 0.3 10 ^3/uL (0-0.8); Hematocrit 38.8 % (36.0-46.0); Hemoglobin 12.9 g/dL (12.2-16.2); Lymphocytes # (auto) 2.8 10 ^3/uL (0.4-5.4); Lymphocytes % (auto) 32.8 % (10.0-50.0); Mean Corpuscular Hemoglobin 28.7 pg (28.0-32.0); Mean Corpuscular Hgb Conc. 33.2 g/dL (32.0-36.0); Mean Corpuscular Volume 86.4 fL (80.0-100.0); Monocytes # (auto) 0.6 10 ^3/uL (0-1.3); Monocytes % (auto) 7.3 % (0.0-12.0); Neutrophils # (auto) 4.8 10 ^3/uL (1.6-8.6); Neutrophils % (auto) 56.5 % (37.0-80.0); Nucleated Red Blood Cells % 0.1 %; Red Blood Cells 4.49 10^6/uL (4.0-5.20); Red Cell Distribution Width 15.4 % (11.8-14.3); White Blood Cell 8.4 10^3/uL (4.4-10.8)
[2023-06-13 06:57] LABS: Alanine Aminotransferase 35 U/L (7-40); Albumin 3.6 g/dL (3.2-4.8); Alkaline Phosphatase 131 U/L (46-116); Anion Gap 8 (5-15); Aspartate Aminotransferase 27 U/L (13-40); BUN/Creatinine Ratio 13.8 (10.0-20.0); Bilirubin, Total 0.4 mg/dL (0.2-1.0); Blood Urea Nitrogen 9 mg/dL (9-23); Calcium 8.7 mg/dL (8.5-10.1); Carbon Dioxide 25 mmol/L (20-30); Chloride 104 mmol/L (98-107); Glucose 100 mg/dL (74-106); Potassium 4.3 mmol/L (3.5-5.1); Sodium 137 mmol/L (136-145); Total Protein 6.1 g/dL (5.7-8.2)
[2023-06-13 09:00] VITALS: BP 114/75; PULSE 75; RESP 18; TEMP 98.2; O2SAT 100
[2023-06-13] MEDS: HYDROcodone-ACET 5/325MG TAB PO PRN (12:05)
[2023-06-13 13:00] VITALS: BP 117/69; PULSE 80; RESP 18; TEMP 97.4; O2SAT 96
[2023-06-13 17:00] VITALS: BP 123/73; PULSE 74; RESP 18; TEMP 98.2; O2SAT 100
[2023-06-13 22:00] VITALS: BP 111/71; PULSE 75; RESP 21; TEMP 98; O2SAT 98
[2023-06-14 05:00] VITALS: BP_SYST 107; BP_SYST 114; BP_DIAS 58; BP_DIAS 62; PULSE 74; PULSE 91; RESP 18; RESP 20; TEMP 98; O2SAT 100; O2SAT 90
[2023-06-14] MEDS: HYDROcodone-ACET 5/325MG TAB PO PRN ×2 (06:17→10:42)
[2023-06-14] MEDS: CLINDAMYCIN 600MG IV 50 ML IV SCH ×3 (06:20→22:20)
[2023-06-14] MEDS: ACCU-CHEK COMFORT CURVE STRIP VI SCH ×4 (06:20→22:25)
[2023-06-14] MEDS: InsuLIN REG 1unit/0.01ml Soln (100units/ml) SC SCH ×4 (06:27→22:28)
[2023-06-14 08:00] VITALS: PULSE 82; RESP 18; O2SAT 96
[2023-06-14 09:00] VITALS: BP 119/77; PULSE 89; RESP 19; TEMP 98.3; O2SAT 98
[2023-06-14] MEDS: SODIUM CHLORIDE 0.9% 1,000 ML IV SCH (10:43)
[2023-06-14] MEDS ORDERED: MORPHINE SULFATE INJ 2 MG/ml SYRG IV PRN (11:00)
[2023-06-14 17:00] VITALS: BP 115/73; PULSE 74; RESP 16; TEMP 98.3; O2SAT 98
[2023-06-14 22:00] VITALS: BP 123/73; PULSE 82; RESP 19; TEMP 98.7; O2SAT 98
[2023-06-14] MEDS: HYDROcodone-ACET 10/325MG TAB PO PRN (22:20)
[2023-06-15] VITALS (7 sets, daily range): BP systolic 105–133; BP diastolic 66–77; PULSE 68–89; RESP 17–18; TEMP 36.8; O2SAT 96–98
[2023-06-15] MEDS: ACCU-CHEK COMFORT CURVE STRIP VI SCH ×4 (06:29→22:00)
[2023-06-15] MEDS: HYDROcodone-ACET 10/325MG TAB PO PRN ×3 (06:29→22:54)
[2023-06-15] MEDS: CLINDAMYCIN 600MG IV 50 ML IV SCH ×3 (06:29→22:34)
[2023-06-15] MEDS: InsuLIN REG 1unit/0.01ml Soln (100units/ml) SC SCH ×4 (06:31→22:00)
[2023-06-16 05:00] VITALS: BP 115/69; PULSE 80; RESP 18; TEMP 97.4; O2SAT 96
[2023-06-16 05:09] LABS: Basophils # (auto) 0 10 ^3/uL (0-0.2); Basophils % (auto) 0.5 % (0.0-2.0); Eosinophils # (auto) 0.2 10 ^3/uL (0-0.8); Eosinophils % (auto) 2.1 % (0.0-7.0); Hematocrit 40.3 % (36.0-46.0); Hemoglobin 13.5 g/dL (12.2-16.2); Lymphocytes % (auto) 30.5 % (10.0-50.0); Mean Corpuscular Hgb Conc. 33.5 g/dL (32.0-36.0); Mean Corpuscular Volume 86.6 fL (80.0-100.0); Monocytes # (auto) 0.7 10 ^3/uL (0-1.3); Monocytes % (auto) 7.4 % (0.0-12.0); Neutrophils # (auto) 5.8 10 ^3/uL (1.6-8.6); Neutrophils % (auto) 59.5 % (37.0-80.0); Red Blood Cells 4.65 10^6/uL (4.0-5.20); Red Cell Distribution Width 15.6 % (11.8-14.3); White Blood Cell 9.8 10^3/uL (4.4-10.8)
[2023-06-16 05:14] LABS: Chloride 102 mmol/L (98-107); Potassium 4.2 mmol/L (3.5-5.1); Sodium 134 mmol/L (136-145)
[2023-06-16 05:15] LABS: Anion Gap 8 (5-15); Carbon Dioxide 24 mmol/L (20-30)
[2023-06-16 05:20] LABS: Glucose 121 mg/dL (74-106)
[2023-06-16 05:21] LABS: BUN/Creatinine Ratio 22.9 (10.0-20.0); Blood Urea Nitrogen 16 mg/dL (9-23)
[2023-06-16] MEDS: CLINDAMYCIN 600MG IV 50 ML IV SCH ×2 (05:56→14:00)
[2023-06-16] MEDS: InsuLIN REG 1unit/0.01ml Soln (100units/ml) SC SCH ×2 (06:18→12:15)
[2023-06-16] MEDS: ACCU-CHEK COMFORT CURVE STRIP VI SCH ×2 (06:22→11:16)
[2023-06-16 08:00] VITALS: PULSE 80; RESP 16; O2SAT 98
[2023-06-16 09:00] VITALS: BP_SYST 110; BP_SYST 129; BP_DIAS 74; BP_DIAS 81; PULSE 80; PULSE 97; RESP 18; TEMP 98.6; O2SAT 98
[2023-06-16] MEDS: HYDROcodone-ACET 10/325MG TAB PO PRN (11:16)
[2023-06-16 13:00] VITALS: BP 106/76; PULSE 76; RESP 18; TEMP 98.2; O2SAT 99
[2023-06-16] MEDS ORDERED: HYDR-4798 PO (13:22)
[2023-06-16 14:33] VITALS: BP 110/74; PULSE 80; RESP 16; TEMP 37; O2SAT 98
== END 2023-06-16 16:20 | disposition home health service (06) | DRG 314 ==
LOC: ER 00:03 → OVERFLOW 07:02 → WEST WING 13:24 → TELE-WESTW 16:04 → WEST WING 16:10
PROVIDERS: ADMIT Nurse Practitioner; ATTEND Nurse Practitioner Acute Care
PROC: 0Y6U0Z0 Detachment at Left 3rd Toe, Complete, Open Approach (ICD-10-PCS; principal; 2023-06-12 10:01)
DX: E11.69 Type 2 diabetes mellitus with other specified complication (principal); L97.529 Non-pressure chronic ulcer of other part of left foot with unspecified severity; E11.42 Type 2 diabetes mellitus with diabetic polyneuropathy; M86.8X7 Other osteomyelitis, ankle and foot; E11.621 Type 2 diabetes mellitus with foot ulcer; S91.109A Unspecified open wound of unspecified toe(s) without damage to nail, initial encounter; X58.XXXA Exposure to other specified factors, initial encounter; I10 Essential (primary) hypertension; E66.9 Obesity, unspecified; Z68.34 Body mass index [BMI] 34.0-34.9, adult; E78.5 Hyperlipidemia, unspecified; Z83.3 Family history of diabetes mellitus; E11.65 Type 2 diabetes mellitus with hyperglycemia; Z87.891 Personal history of nicotine dependence; Z98.51 Tubal ligation status; Z90.49 Acquired absence of other specified parts of digestive tract; Z89.432 Acquired absence of left foot; Z89.431 Acquired absence of right foot; Y93.89 Activity, other specified; Y92.89 Other specified places as the place of occurrence of the external cause; Y99.8 Other external cause status
CPT/HCPCS: 36415; 71045; 80048; 80053; 82962; 84702; 85025; 85610; 85730; 87070; 87075; 87205; 93005; 97110; 97116; 97530; G0378; J0690; J1100; J1815; J2250; J2405; J2704; J3490